=== PATIENT | female | born 1940 | race Caucasian/White ===

== ENCOUNTER 2019-09-26 06:39 | Day surgery (SDC) | payer MEDICARE, OTHER ==
[~2019-09-26] VITALS: Ht 160 cm; Wt 77.0 kg
[~2019-09-26 06:39] MED LIST: ATOR20 PO; Aspir 8181 MG PO; FISH OIL 1,2001 EACH PO; FOLIXAPURE5000 UNIT PO; GABA300 PO; Humalog100 UNIT/1; INS70/30I; INSDET100; INSULANI SC; LISI20 PO; LOVA20 PO; PIOG30 PO; Plavix75 MG PO; Prinivil10 MG PO
--- NOTE | 2019-09-26 09:05 | NUR ---
Pt received from Qian Pat RN, Pt is alert, cooperative and denies pain. Pt is in recliner chair with tele monitor on. SR with PVC's. Right radial within normal limits. Pt has dopple Popiteal on right with DP doppler on Left. IV NS 700 RODNEY #20 left forearm infusing at 100/hr. Awaiting orders. Pt with call light on chest.
--- NOTE | 2019-09-26 09:21 | NUR ---
Dr. Estrada here to talk with pt.
--- NOTE | 2019-09-26 10:49 | NUR ---
Pt finished breakfast, reclining in chair, warm blanket given. IV H.L. Pt with 2 cc air removed from tr-band. Pt denies pain. I will review discharge with patient and spouse upon her discharge.
--- NOTE | 2019-09-26 11:03 | NUR ---
Pt with 2 cc air removed at 1058, 2 more cc air removed at 1103. No bleeding or hematoma noted. VSS
--- NOTE | 2019-09-26 11:05 | NUR ---
All air removed from tr-band. Pt is now dressing with tr-band on. Pt went to [facility].
--- NOTE | 2019-09-26 11:25 | NUR ---
Pt returned from [facility]. She is dressed, I have instructed Leah not to use her right hand. Dr. Ambrocio here talking to patient regarding plan to ask Dr. Osuna to fix her claudation next week. Instructed patient that she would be contacted by Cardiology office. Right wrist tr-band removed dabbed clean and dabbed dry. Cloth dot applied site with no bleeding or hematoma noted, wrist board applied so patient could not use her fingers. IV left forearm removed catheter intact.
--- NOTE | 2019-09-26 12:00 | NUR ---
Pt wheeled to private auto via wheel chair. I spoke to and explain discharge instructions as well as Dr. Ambrocio's plan for treatment in phases due to kidney function. Pt and spouse verbalized understanding of instructions and also that he will be speaking with Dr. Osuna for futher tx. Pt stable upon discharge site with no bleeding or hematoma reviewed site with and patient.
== END 2019-09-26 12:54 | disposition home or self-care (01) ==
LOC: MHTC 06:39
DX: I70.211 Atherosclerosis of native arteries of extremities with intermittent claudication, right leg (principal); E11.51 Type 2 diabetes mellitus with diabetic peripheral angiopathy without gangrene; I48.91 Unspecified atrial fibrillation; I12.9 Hypertensive chronic kidney disease with stage 1 through stage 4 chronic kidney disease, or unspecified chronic kidney disease; E11.22 Type 2 diabetes mellitus with diabetic chronic kidney disease; N18.9 Chronic kidney disease, unspecified; E78.5 Hyperlipidemia, unspecified; Z79.4 Long term (current) use of insulin; Z79.82 Long term (current) use of aspirin; Z79.899 Other long term (current) drug therapy; Z79.02 Long term (current) use of antithrombotics/antiplatelets
CPT/HCPCS: 76937; 82947; 99152; 99153; C1769; C1887; C1894; J1644; J2250; J3010; J7030; Q9967

== ENCOUNTER 2019-10-07 05:59 | Inpatient (IN) | payer MEDICARE, OTHER ==
[~2019-10-07] VITALS: Ht 160 cm; Wt 82.8 kg
[2019-10-07 07:34] LABS: BASOPHILS ABSOLUTE AUTO 0.07 K/mm3 (0.00-0.23); BASOPHILS PERCENT AUTO 1 % (0-2); EOSINOPHILS ABSOLUTE AUTO 0.48 K/mm3 (0.00-0.68); EOSINOPHILS PERCENT AUTO 3 % (0-6); Hematocrit 36.5 % (33.0-51.0); Hemoglobin 11.7 g/dL (11.5-16.0); IMMATURE GRAN ABSOLUTE AUTO 0.05 K/mm3 (0.00-0.10); IMMATURE GRAN PERCENT AUTO 0 % (0-1); LYMPHOCYTES ABSOLUTE AUTO 3.48 K/mm3 (0.84-5.20); LYMPHOCYTES PERCENT AUTO 24 % (21-46); MONOCYTES ABSOLUTE AUTO 1.07 K/mm3 (0.16-1.47); MONOCYTES PERCENT AUTO 7 % (4-13); Mean Corpuscular HGB Conc 32.1 g/dL (31.5-36.5); Mean Corpuscular Volume 94 fL (80-100); NEUTROPHILS ABSOLUTE AUTO 9.67 K/mm3 (1.96-9.15); NEUTROPHILS PERCENT AUTO 65 % (41-73); Platelet Count 285 K/mm3 (150-400); RDW Coefficient Variation 13.2 % (11.7-14.2); RDW Standard Deviation 45.2 fL (35.1-46.3); White Blood Cell Count 14.82 K/mm3 (4.00-11.30)
[2019-10-07 07:58] LABS: International Normalized Ratio 0.96; Prothrombin Time Results 10.3 Sec (9.7-11.5)
[2019-10-07 08:02] LABS: Bun/Creatinine Ratio 20.7 (12.0-20.0); Calcium, Blood 8.3 mg/dL (8.5-10.1); Creatinine, Blood 1.5 mg/dL (0.40-1.00); Potassium, Blood 4.3 mmol/L (3.5-5.5)
--- NOTE | 2019-10-07 14:10 | NUR ---
ASSUMED CARE: PT ARRIVED FROM INJURY/SAFETY HAZARD ASSESSMENT NO HEPARIN OR CATHFLOW RUNNING UPON ARIVAL. NO ACUTE BLEEDING NOTED AT SHEATH SITES ON THE R OR L GROIN SITES. PT EDUCATED ON KEEPING HER LEGS STREIGHT. PULSES ARE CHECKED AND VERAFIED WITH HEART CENTER STAFF PULSES ARE FELT IN BOTH FEET JUST VERY WEAK ON THE R PEDAL PULSE. WILL CONTINUE TO MONITOR AND ASSESS FURTHER.
--- NOTE | 2019-10-07 14:39 | NUR ---
CATHFLOW STARTED: STARTED THE CATHFLOW AT THIS TIME IN THE L WHITE SHEATH. PEDEL PULSES CONTINUE TO BE PALPABLE JUST WEAKER ON THE R SIDE.
--- NOTE | 2019-10-07 15:08 | NUR ---
HEPARIN STARTED: STARTED HEPARIN IN THE SIDE PORT OF THE L SHEATH PER ORDERS.
--- NOTE | 2019-10-07 16:57 | NUR ---
SOW: SOW PLACED IN PT TO PREVENT EXCESSIVE ROLLING AND FLEXSION OF THE FEMORAL SHEATHS. ELI ERNANDEZ PLACED AND UA SENT TO THE LAB. WILL CONTINUE TO MONITOR.
--- NOTE | 2019-10-07 17:02 | NUR ---
FENTANYL: PT IS NOTED TO BE ON HER BACK WITH HER R KNEE SLIGHTLY BENT. UPON ENTERING THE ROOM PT STATES SHE IS IN A LOT OF PAIN IN THAT R LEG.N REEDUCATED PT ON THE IMPORTANCE OF KEEPING HER LEGS STREIGHT TO REDUCE RISK OF BLEEDING. NO BLEEDING NOTED UPON ASSESSMENT. CALLED DR ROSALES AND RECEIVED ORDER FOR PAIN MEDS [id number].
[2019-10-07 17:22] LABS: Source, Urine Catheter
[2019-10-07 17:45] LABS: Bilirubin, Urine Neg (Neg); Blood, Urine Neg (Neg); Glucose Qualitative, Urine Neg (Neg); Ketones, Urine Neg (Neg); Leukocyte Esterase, Urine 1+ (Neg); Nitrite, Urine Pos (Neg); Protein, Urine 1+ (Neg); Urobilinogen, Urine NORM (Normal)
[2019-10-07 17:55] LABS: Appearance, Urine Hazy (Clear); Color, Urine Yellow (P-Yellow)
[2019-10-07 17:58] LABS: Bacteria Mod /hpf; Red Blood Cells, Urine 0-2 /hpf (0-2); Squamous Epithelial Cells Rare /hpf (Few)
--- NOTE | 2019-10-07 20:00 | NUR ---
ASSUMED CARE OF PT AT 1915. REPORT RECEIVED AT BEDSIDE. PT PRESENTS IN BED. HAS DEMONSTRATED FORGETFULNESS. NEEDS TO BE REORIENTED TO WHY SHE IS IN THE HOSPITAL, AND THAT SHE HAS AN ARTERIAL SHEATH AND VENOUS SHEATH IN PLACE. TPA INFUSING PER ORDERS WELL HEPARIN. LEFT GROIN SITE CHECK WITHOUT OOZING OR HEMATOMA. RIGHT GROIN WITH VENOUS SHEATH. NO HEMATOMA OR OOZING. DOPPLER PULSES BI LATERAL NOTED DISTALLY. WILL REVIEW CHART AND PLAN OF CARE FOR THIS PT.
--- NOTE | 2019-10-07 23:00 | NUR ---
PT'S GROIN SITES REMAIN WITHOUT HEMATOMA OR OOZING. PT AWAKENS AND AGAIN FORGETES WEHRE SHE IS. ASKS IF IT IS TIME TO GET UP. REORIENTED PT TO WHERE SHE IS AT THE TIME AND THE RESTRICTIONS SECONDARY TO FEMORAL SHEATHS. PT HAS NO COMPLAINTS OF PAIN AT THIS TIME. PT CONTINUES ON TPA PER ORDERS. HAVE BEEN ABLE TO OBTAIN PERIPHERAL PULSES BY DOPPLER. RIGHT LOWER EXTREMITY SLIGHTLY COOLER TO THE TOUCH VERSUS LEFT.
--- NOTE | 2019-10-08 03:27 | NUR ---
PT CURRENTLY SLEEPING IN BED WITHOUT COMPLAINTS. REMAINS SUPINE PER GROIN ACCESS RESTRICTIONS. NO HEMATOMA OR OOZING.
[2019-10-08 04:27] LABS: BASOPHILS ABSOLUTE AUTO 0.06 K/mm3 (0.00-0.23); BASOPHILS PERCENT AUTO 0 % (0-2); EOSINOPHILS ABSOLUTE AUTO 0.02 K/mm3 (0.00-0.68); EOSINOPHILS PERCENT AUTO 0 % (0-6); Hematocrit 34.1 % (33.0-51.0); IMMATURE GRAN ABSOLUTE AUTO 0.08 K/mm3 (0.00-0.10); IMMATURE GRAN PERCENT AUTO 0 % (0-1); LYMPHOCYTES ABSOLUTE AUTO 2.65 K/mm3 (0.84-5.20); LYMPHOCYTES PERCENT AUTO 14 % (21-46); MONOCYTES ABSOLUTE AUTO 1.32 K/mm3 (0.16-1.47); MONOCYTES PERCENT AUTO 7 % (4-13); Mean Corpuscular HGB 30.1 pg (26.0-34.0); Mean Corpuscular HGB Conc 32.3 g/dL (31.5-36.5); Mean Corpuscular Volume 93 fL (80-100); Mean Platelet Volume 10.9 fL (9.1-12.4); NEUTROPHILS ABSOLUTE AUTO 15.21 K/mm3 (1.96-9.15); NEUTROPHILS PERCENT AUTO 79 % (41-73); Platelet Count 195 K/mm3 (150-400); RDW Coefficient Variation 13.2 % (11.7-14.2); RDW Standard Deviation 45.3 fL (35.1-46.3); Red Blood Cell Count 3.65 M/mm3 (3.80-5.20); White Blood Cell Count 19.34 K/mm3 (4.00-11.30)
[2019-10-08 04:44] LABS: Bun/Creatinine Ratio 19.9 (12.0-20.0); Calcium, Blood 8.1 mg/dL (8.5-10.1); Creatinine, Blood 1.41 mg/dL (0.40-1.00); Potassium, Blood 4.1 mmol/L (3.5-5.5)
--- NOTE | 2019-10-08 07:01 | NUR ---
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 PT ACKNOWLEDGES PROCEDURE. REPORT GIVEN TO [facility]SI[facility] NURSES. PT WITHOUT HEMATOMA IN LEFT OR RIGHT GROIN.
--- NOTE | 2019-10-08 07:05 | NUR ---
PT TO HEART CENTER: HEART CENTER STAFF HERE AND TAKING PT TO THE BEEF LUGGER AT THIS TIME. PT ALERT AND TALKING TO STAFF UPON LEAVING.
--- NOTE | 2019-10-08 08:48 | NUR ---
RETURN FROM IT SENIOR ANALYST: PT ROLLS IN THE DOOR ON THE BED LYING FLAT. SHE DENIES PAIN AT THIS TIME. MINIMAL BLEEDING IS NOTED ON THE R FOOT AT THE ATTEMPTED SITE FROM YESTERDAY, A SECONDARY DRESSING IS COVERING SITE. L ARTERIAL SHEATH HAS BEEN REMOVED. SITE APPEARS TO BE SOFT AND NON TENDER. NO BLEEDING NOTED AT THIS TIME. PULSES HEARD BY DOPPLER IN THE R FOOT. R FOOT APPEARS TO BE PINK AND WARM TO THE TOUCH. PT STATES SHE IS TIRED. BLOOD SUGAR SPOT CHECKED. EDUCATED ON THE NEED TO REMAIN FLAT FOR AT LEASE 4 MORE HOURS. R VENOUS SHEATH REMAINS IN PLACE. CALL LIGHT IN PLACE. WILL CONTINUE TO MONITOR AND ASSESS FURTHER.
--- NOTE | 2019-10-08 15:45 | NUR ---
HEMATOMA: QUALITY SUPERVISOR IN ROOM AFTER PT CALLED D/T PAIN IN HER L LEG. CHARGE CALLED THIS RN TO THE ROOM AND PT HAS A LARGE HEMATOMA NOTED BELOW THE SITE OF THE GROIN ACCESS. QUALITY SUPERVISOR ELI BEGAN TO HOLD PRESSURE AND MASSAGE THE HEMATOMA. THIS RN REMAINS IN THE ROOM TO ASSESS BP AND OTHER IV ACCESS. R AC IS REMOVED AFTER ATTEMPTING TO FLUSH, RECEIVED BLOOD RETURN AND THEN UPON FLUSHING SUDDENTLY OCCLUDED APPEARS TO BE POSSITIONAL. DRESSING ON R TOP OF FOOT IS STILL SATURATED THIS RN BEGINS TO REMOVE THE DRESSING AND A DROP OF BLOOD RUNS DOWN THE FOOT. CLEANED AREA AND APPLIED A THOMAS DRESSING. QUALITY SUPERVISOR CLEANS THE L FEMORAL SITE WITH CHLORHEXADINE AND THEN PLACES A HTOMAS DRESSING OVER THE INSERSION SITE AND OUTLINES THE AREA OF THE HEMATOMA. VITAL SIGNS REMAIN STABLE DURING THIS TIME, BUT SEVERAL INACURATE READINGS D/T PT MOVING HER ARM OR LIFTING IT UP IN THE AIR WHILE ATTMPTING TO TAKE BP.
--- NOTE | 2019-10-08 16:30 | NUR ---
DR CONNIE CHAPARRO: WHILE THIS RN IS REMOVING THE R VENIOUS SHEATH DR CONNIE CHAPARRO TO THE ROOM AND BEGINS TO DISCUSS ANTICOAGULATION MEDICATIONS THE PT NEEDS TO BE ON. PT AGREES TO TRY ELIQUIS. DR ROSALES ORDERS TO STOP THE HEPARIN WHILE HE IS IN THE ROOM, A NOW DOSE OF ELIQUIS AND STATES HE WILL BE PLACING DISCHARGE ORDERS.
--- NOTE | 2019-10-08 17:50 | NUR ---
BLEEDING STABLE, REDUCED HEMATOMA: PT RECEIVED A TOTAL OF 4 EPPISODES OF PRESSURE AND MASSAGE OF THE HEMATOMA. THE LAST EPPISODE WAS AT APPROX 1715 THIS RN HELD PRESSURE ABOVE THE INSERSION SITE FOR APPROX 20 MIN AND MASSAGED THE HEMATOMA TO DISPERSE. PT EDUCATED THAT SHE WILL END UP WITH A VERY LARGE BRUISE D/T THE HEMATOMA. CONTINUED TO REASSESS SITE Q5 MINITES UNTIL 1800. SITE REMAINS SOFT AND TENDER TO THE TOUCH. WHILE HOLDING PRESSURE THE LAST TIME PT STATED SHE DOES NOT FEEL COMFORTABLE GOING HOME, THIS RN CALLED DR JACKSON TO APPROVE. AGREES THAT IS FINE AND DISCHARGE ORDERS REMAIN LONG PT REMAINS STABLE. PT IS TO RECEIVE HER MORNING DOSE OF ELIQUIS 2.5 MG PRIOR TO DISCHARGE AND EDUCATED TO FILL PERSCRIPTION SOON SHE LEAVES THE HOSPITAL. PT NEEDS TO BE EDUCATED ON THE IMPORTANCE OF THE MEDICATION D/T PT STILL QUESTIONING IF SHE SHOULD TAKE IT. PT APPEARS TO BE VERY HESITANT.
--- NOTE | 2019-10-08 19:05 | NUR ---
DISCHARGE: RECEIVED DISCHARGE ORDERS NO ELIQUIS NOTED ON THE HOME MED LIST. CALLED DR ROSALES TO DISCUSS. DR ROSALES STATES HE IS BRINGING A WRITTEN PRESCRIPTION D/T HAVING A DISCUSSION WITH PHARMACY AND NOT BEING ABLE TO ADD ELIQUIS TO THE "ORDER SET". STATES HE WANTS A FOLLOW UP APPOINTMENT WITH HER ON SUNDAY CALLED THE [facility] TO RECEIVE A TIME THEY ASK IF DR ROSALES STATED A SPECIFIC TIME. [facility] STATES THEY WILL CALL THE PT ON SUNDAY TO COORDINATE AND SCHEDULE A SPECIFIC TIME ON SUNDAY.
--- NOTE | 2019-10-08 20:28 | NUR ---
ASSUMED CARE OF PT AT 1915. REPORT RECEIVED AT BEDSIDE. PT PRESENTS IN BED. ALERT AND ORIENTED. DOES HAVE SOME FORGETFULNESS NOTED. IMPROVEMENT NOTED IN WARMTH OF RIGHT LOWER EXTREMITY TO PRIOR ASSESSMENT DONE BY THIS RN PREVIOUS NIGHT. ABLE TO PALPATE PEDAL PULSES BI LAT. LEFT GROIN SITE SOFT. NO HEMATOMA OR OOZING TO NOTE. LEFT AC IV DOES TEND TO OF SLOW OOZE OF BLOOD AROUND INSERTION SITE. WILL REVIEW CHART AND PLAN OF CARE FOR THIS PT.
--- NOTE | 2019-10-08 23:29 | NUR ---
PT'S GROIN SITES REMAIN WITHOUT HEMATOMA OR OOZING. PT INSTRUCTED TO CALL IF SHE FEELS ANY CHANGES AT GROIN SITES, OR IF SHE HAS CONCERNS. WILL TRY TO PROVIDE PT WITH REST THIS NIGHT. WILL DO PERIODIC GROIN SITE CHECKS SECONDARY TO EARLIER HEMATOMA. WILL CONTINUE TO MONITOR PT.
--- NOTE | 2019-10-09 08:06 | NUR ---
ASSUMED CARE REPORT RECEIVED FROM ASIYA TREVINO. PT RESTING IN BED, REQUESTING TO GET UP TO THE BR TO HAVE A BM. ASSISTED PT TO THE EOB AND SHE C/O SOME DIZZINESS. HAD PT SIT AT EDGE OF BED FOR ABOUT 5 MINUTES. TOOK HER BP AND SBP 106, HR 106. PT'S IV WAS LEAKING BLOOD AT THAT TIME SO REMOVED IV WHILE GIVING PT TIME TO ADJUST. ASSISTED PT TO BSC PROVIDING MODERATE ASSISTANCE. PT SAT ON COMMODE FOR ABOUT 10 MINUTES. WHILE SITTING ON THE COMMODE PT STARTED TO GET CONFUSED AND LESS RESPONSIVE. PT DID NOT APPEAR TO BE BEARING DOWN AND HR STAYED IN THE 90-100S. CALLED FOR ASSISTANCE AND PT REQUIRED THE LIFT TO GET BACK TO BED SHE WOULD NOT FOLLOW ANY COMMANDS. BG 246. SBP IN THE 80S ONCE BACK IN BED, BUT CAME BACK UP TO THE 90S. PT'S COLOR TURNED BACK TO PINK ONCE SHE RESTED AND SHE STARTED TO BE MORE RESPONSIVE, ABLE TO SAY SHE IS IN THE HOSPITAL BUT STILL CONFUSED TO DATE. AFTER ABOUT 15 MINUTES BACK IN BED PT STATES SHE IS FEELING A LOT BETTER, STILL SLIGHTLY CONFUSED. DR. IRVNIG INFORMED OF EVENTS. PT'S GROIN SITE REMAINS SOFT WITHOUT SIGNS OF INCREASING HEMATOMA. CONTINUING TO MONITOR.
[2019-10-09 09:01] LABS: BASOPHILS ABSOLUTE AUTO 0.05 K/mm3 (0.00-0.23); BASOPHILS PERCENT AUTO 0 % (0-2); EOSINOPHILS PERCENT AUTO 1 % (0-6); Hematocrit 25.3 % (33.0-51.0); IMMATURE GRAN ABSOLUTE AUTO 0.12 K/mm3 (0.00-0.10); IMMATURE GRAN PERCENT AUTO 1 % (0-1); LYMPHOCYTES PERCENT AUTO 13 % (21-46); MONOCYTES ABSOLUTE AUTO 1.38 K/mm3 (0.16-1.47); MONOCYTES PERCENT AUTO 6 % (4-13); Mean Corpuscular HGB 30.3 pg (26.0-34.0); Mean Corpuscular HGB Conc 31.6 g/dL (31.5-36.5); Mean Platelet Volume 10.7 fL (9.1-12.4); NEUTROPHILS ABSOLUTE AUTO 17.33 K/mm3 (1.96-9.15); NEUTROPHILS PERCENT AUTO 80 % (41-73); Platelet Count 164 K/mm3 (150-400); RDW Coefficient Variation 13.4 % (11.7-14.2); Red Blood Cell Count 2.64 M/mm3 (3.80-5.20); White Blood Cell Count 21.68 K/mm3 (4.00-11.30)
[2019-10-09 09:06] LABS: Mean Corpuscular Volume 96 fL (80-100)
[2019-10-09 09:21] LABS: Bun/Creatinine Ratio 12.8 (12.0-20.0); Calcium, Blood 7.9 mg/dL (8.5-10.1); Creatinine, Blood 3.51 mg/dL (0.40-1.00); Potassium, Blood 4.6 mmol/L (3.5-5.5)
--- NOTE | 2019-10-09 11:28 | NUR ---
REASSESSMENT PT HAS BEEN RESTING IN BED SINCE EPISODE THIS MORNING. SHE REMAINS ORIENTED TO PERSON AND PLACE, WAS ABLE TO EAT BREAKFAST AND HAS BEEN DRINKING FLUIDS. SPOKE WITH DR. IRVING ABOUT HIGH BLOOD SUGARS AND PT IS NOT ON HER NORMAL LANTUS DOSE. RECEIVED ORDERS TO INCREASE. IV FLUIDS STARTED PER ORDERS AND PLAN OF CARE DISCUSSED WITH PT. LUNGS REMAIN CLEAR, RA, SR, BP STABLE IN THE LOW 100S SINCE THIS MORNING. LOW URINE OUTPUT THIS MORNING WITH LESS THAN 50ML, CLOUDY. PT COMPLAINED OF SOME PAIN TO RLE, PULSES STILL PRESENT WITH DOPPLER AND LEG IS PINK AND WARM. HEMATOMA SITE ON L GROIN REMAINS SOFT. SPOKE WITH PT'S AND PROVIDED UPDATE.
[2019-10-09 16:10] LABS: Hematocrit 22.9 % (33.0-51.0); Hemoglobin 7.6 g/dL (11.5-16.0)
[2019-10-09 16:39] LABS: Calcium, Blood 7.7 mg/dL (8.5-10.1); Creatinine, Blood 3.85 mg/dL (0.40-1.00); Potassium, Blood 4.8 mmol/L (3.5-5.5)
--- NOTE | 2019-10-09 18:11 | NUR ---
SHIFT SUMMARY PT HAD A NEAR SYNCOPAL EPISODE THIS MORNING WITH GETTING UP TO THE COMMODE AND THEN PT GOT ORTHOSTATIC AGAIN THIS AFTERNOON WITH PHYSICAL THERAPY. SHE DID OK SITTING ON THE EOB, BUT THEN GOT DIZZY AND DROPPED HER SBP TO THE 80S WHILE STANDING. PT TOOK ABOUT AN HOUR TO RECOVER HER BP AND THEN PT WAS SAYING SHE STILL DIDN'T FEEL GOOD. PT APPEARED MORE PALE THAN BASELINE AND SHE STATED SHE HAD A SHARP PAIN IN HER L CHEST. UNABLE TO DESCRIBE IT FURTHER OR RATE IT. PT STATES TO ASK HER WHEN ASKED FOR MORE SPECIFICS. SPOKE WITH DR. IRVING AND RECEIVED ORDER FOR EKG. PT APPEARS TO HAVE [address] DEPRESSION IN V2, V3, AND V4. RELAYED THIS TO DR. IRVING. WAITING FOR TROPONIN RESULTS. DR. IRVING ALSO INFORMED OF BMP RESULTS AND RECEIVED ORDER FOR FLUIDS AND NEPHROLOGY CONSULT. DR. KERN CAME TO THE BEDSIDE. [address] KERN UPDATED PT'S . PT'S LUNGS REMAIN CLEAR. SR. IN THE 80S. BP DOING BETTER WITH THE FLUIDS, SEE FLOWSHEET. PT ONLY HAD 55ML OF URINE FOR THE SHIFT, DRS AWARE. L GROIN REMAINS SOFT, NO SIGNS OF HEMATOMA. CONTINUING TO MONITOR.
[2019-10-09 19:07] LABS: Hematocrit 22.6 % (33.0-51.0); Hemoglobin 7.2 g/dL (11.5-16.0)
[2019-10-09 19:27] LABS: International Normalized Ratio 1.02; Prothrombin Time Results 10.9 Sec (9.7-11.5)
--- NOTE | 2019-10-09 19:40 | NUR ---
REPORTED TROPONIN TO DR. IRVING. RECEIVED ORDERS FOR HEPARIN PER PHARMACY, REPEAT STAT H/H, ECHO IN AM AND ABD CT. TOOK PT TO CT WITH AIDE AND PT TOELRATED WELL. PT'S IN THE ROOM VISITING WITH HER. REPORT GIVEN TO ASIYA RACHEL.
--- NOTE | 2019-10-09 19:45 | NUR ---
ASSESSMENT/ASSUMED CARE PT LYING SUPINE IN BED. A&O. AT BEDSIDE. PT DENIES PAIN OR DISCOMFORT AT THIS TIME. LUNGS CLEAR ON ROOMAIR. RESP EVEN AND NONLABORED. HEART RATE REGULAR. BP STABLE. LEFT GROIN SOFT TO PALPATION BUT TENDER FROM HEMATOMA YESTERDAY. RIGHT GROIN WITH BRUISING, SOFT TO PALPATION. DOPPLER PEDAL PULSES. BT+ ABD SOFT AND NONTENDER. DENIES N/V. NEW IV PLACED TO RIGHT FOREARM BY АННА RIVERA RN, 20G FOR BLOOD TRANSFUSION. IV 20G TO LEFT WRIST WITH BICARB GTT STARTED AT 100ML/HR, SITE CLEAR. SOW CATH PATENT WITH SCANT AMT URINE IN TUBE. 24 HR URINE IN PROGRESS.
--- NOTE | 2019-10-09 20:41 | NUR ---
TRANSFUSION FIRST UNIT PRBC STARTED. BICARB GTT DECREASED TO 10ML/HR WHILE BLOOD INFUSING
--- NOTE | 2019-10-09 21:15 | NUR ---
HOSPITALIST AT BEDSIDE HOSPITALIST HARIS ANAND AT BEDSIDE ASSESSING LEFT LEG FOR BLEEDING. PT TO HAVE US TO LEFT LEG TO CHECK FOR BLEEDING.
--- NOTE | 2019-10-09 21:50 | NUR ---
US OF LEFT LEG US COMPLETE PER US TECH NO ACTIVE BLEEDING SEEN. NOTIFIED HOSPITALIST HARIS ANAND.
--- NOTE | 2019-10-09 22:16 | NUR ---
URINE OUTPUT SPOKE WITH DR KERN REGARDING POOR URINE OUTPUT 20ML SINCE 190. INCREASED BICARB GTT TO 50 ML/HR NOW. WILL INCREASE BACK UP TO 100 ML/HR AFTER BLOOD TRANSFUSION.
--- NOTE | 2019-10-09 23:45 | NUR ---
DR ROSALES HERE TO CHECK UP ON PT. REVIEWED US WITH DR ROSALES. TALKED WITH HIM REGARDING POSSIBLE DIALYSIS CATH ON 10/10/19.
--- NOTE | 2019-10-10 00:13 | NUR ---
TRANSFUSION SECOND UNIT PRBC STARTED. TROPONIN DRAWN, BLOOD GLUCOSE 111, NO INSULIN GIVEN
--- NOTE | 2019-10-10 00:53 | NUR ---
DR LINDSAY NOTIFIED REGARDING TROPONIN OF 1.26, NO NEW ORDERS. PT DENIES PAIN
--- NOTE | 2019-10-10 04:14 | NUR ---
SPO2 DOWN TO 88% PT PLACED ON 2 LITERS O2 VIA NC.
[2019-10-10 04:19] LABS: BASOPHILS ABSOLUTE AUTO 0.07 K/mm3 (0.00-0.23); BASOPHILS PERCENT AUTO 0 % (0-2); EOSINOPHILS ABSOLUTE AUTO 0.39 K/mm3 (0.00-0.68); EOSINOPHILS PERCENT AUTO 2 % (0-6); Hematocrit 26.3 % (33.0-51.0); Hemoglobin 8.8 g/dL (11.5-16.0); IMMATURE GRAN ABSOLUTE AUTO 0.16 K/mm3 (0.00-0.10); IMMATURE GRAN PERCENT AUTO 1 % (0-1); LYMPHOCYTES ABSOLUTE AUTO 3.56 K/mm3 (0.84-5.20); LYMPHOCYTES PERCENT AUTO 15 % (21-46); MONOCYTES ABSOLUTE AUTO 1.78 K/mm3 (0.16-1.47); MONOCYTES PERCENT AUTO 8 % (4-13); Mean Corpuscular HGB 30.4 pg (26.0-34.0); Mean Corpuscular HGB Conc 33.5 g/dL (31.5-36.5); NEUTROPHILS ABSOLUTE AUTO 17.47 K/mm3 (1.96-9.15); NEUTROPHILS PERCENT AUTO 75 % (41-73); Platelet Count 141 K/mm3 (150-400); RDW Coefficient Variation 13.5 % (11.7-14.2); RDW Standard Deviation 44.7 fL (35.1-46.3); Red Blood Cell Count 2.89 M/mm3 (3.80-5.20); White Blood Cell Count 23.43 K/mm3 (4.00-11.30)
[2019-10-10 04:23] LABS: Mean Corpuscular Volume 91 fL (80-100)
[2019-10-10 04:37] LABS: Anion Gap 7 mmol/L (6-16); Blood Urea Nitrogen 51 mg/dL (8-24); Bun/Creatinine Ratio 11.8 (12.0-20.0); CO2, Blood 20 mmol/L (21-32); Calcium, Blood 7.4 mg/dL (8.5-10.1); Chloride, Blood 105 mmol/L (98-108); Creatinine, Blood 4.32 mg/dL (0.40-1.00); Glomerular Filtration Rate 10 (60-); Glucose, Blood 154 mg/dL (70-99); Magnesium, Blood 1.6 mg/dL (1.6-2.4); Phosphorus, Blood 3.7 mg/dL (2.5-4.9); Potassium, Blood 4.6 mmol/L (3.5-5.5); Sodium, Blood 132 mmol/L (136-145)
--- NOTE | 2019-10-10 05:11 | NUR ---
URINE OUTPUT NOTIFIED DR LINDSAY REGARDING POOR URINE OUTPUT. PT POSSIBLE DIALYSIS CATH TODAY WITH DIALYSIS
--- NOTE | 2019-10-10 05:48 | NUR ---
SHIFT SUMMARY PT RESTING QUIETLY. DENIES PAIN AT THIS TIME. PT GIVEN 2 UNITS PRBC DURING THE NIGHT, H&H UP TO 8.8/26.3. NO BLEEDING NOTED. US OF LEFT LEG DONE. DR ROSALES AND HOSPITALIST HARIS INTO SEE PT DURING THE NIGHT. NO ACUTE BLEEDING NOTED WITH US. 24 HR URINE IN PROGRESS. PT URINE OUTPUT POOR 75 ML FOR THE SHIFT. DR LINDSAY AND DR KERN NOTIFIED. POSSIBLE DIALYSIS CATH PLACEMENT TODAY BY DR ROSALES DUE TO CREATININE UP TO 4.32. HEPARIN GTT AT 14 UNITS/KG/HR NEXT PTT AT 1100. SODIUM BICARB GTT AT 100 ML/HR. TROPONIN UP TO 1.260, PT DENIES CHEST PAIN OR PRESSURE. REPORT TO ON COMING NURSE
--- NOTE | 2019-10-10 07:05 | NUR ---
ASSUMED CARE: RECEIVED REPORT FROM NOC RN. PT LYING IN BED LYING ON HER L SIDE WAKES EASILY TO VERBAL STEMULI. VERAFIED SODIUM BICARB RUNNING AT 100ML/HR. HEPARIN RUNNING AT 14 MCG/KG/HR WITH DOSING WT OF 62 KG. ASSESSED R AND L FEMORAL GROIN ACCESS SITES BRUISING IS NOTED AT BOTH SITES, BUT NO SWELLING OR BLEEDING NOTED. WILL CONTINUE TO MONITOR AND ASSESS FURTHER.
--- NOTE | 2019-10-10 07:25 | NUR ---
NEPHROLOGY: CALLED DR BOWLING TO NOTIFY HER OF HER PT BEING IN THE HOSPITAL AND DR KERN CURRENTLY FOLLOWING PT WHILE IN THE HOSPITAL AND PATIENT/FAMILY REQUESTING DR BOWLING TO CARE FOR HER RATHER THAN DR KERN. DR BOWLING IS OK WITH THAT AND ASKS THIS RN TO NOTIFY SHE WILL CALL HIM THIS AFTERNOON WITH UPDATE. DR KERN NOTIFIED OF THE CHANGE AND DR BOWLING AGREEING TO ASSUME CARE.
--- NOTE | 2019-10-10 08:59 | NUR ---
ELIVATED TROP: RECEIVED CRITICAL TROP LEVEL OF 7.[address] IRVING WITH ELIVATED TROP LEVELS. DR IRVING STATES SHE IS GOING TO ORDER A CARDIOLOGY CONSULT, REMINDED HER MUST BE A DR TO DR DIAS. WILL CONTINUE TO MONITOR. PT DENEIS PAIN.
--- NOTE | 2019-10-10 09:08 | NUR ---
ECHO PT RECEIVING ECHO AT THIS TIME.
--- NOTE | 2019-10-10 09:48 | NUR ---
DR IRVING: IN TO SEE THE PT AT THIS TIME ASSESSING PT. UPDATING PT ON PLAN OF CARE AND LETS PT KNOW SHE WILL CALL THE TODAY TO UPDATE.
[2019-10-10 10:34] LABS: Albumin, Blood 2.2 g/dL (3.4-5.0); Albumin/Globulin Ratio 0.6 (0.8-1.8); Bilirubin, Direct 0.1 mg/dL (0.0-0.3); Bilirubin, Indirect 0.5 mg/dL (0.1-0.7); Bilirubin, Total 0.6 mg/dL (0.1-1.0); Globulin, Blood 3.4 g/dL (2.2-4.0); Total Protein, Blood 5.6 g/dL (6.4-8.2)
--- NOTE | 2019-10-10 10:37 | NUR ---
DIALYSIS PORT/DR ROSALES: CALLED DR ROSALES TO UPDATE ON PT CURRENT CONDITION AND DISCUSS PLAN OF CARE. NO NOTES FROM DR ROSALES NOTED IN THE CHART PRIOR TO CALL SO WANTED TO VERAFY HE WOULD BE PLACING DIALYSIS PORT. DR ROSALES REPORTS DR KERN DENIED NEED FOR PORT AT THIS TIME. UPDATED DR ROSALES ON TOES ON R FOOT HAVING A FOUL ODOR THAT WAS NOT NOTED PREVIOUSLY. TRANSFERED CALL TO DR IRVING AT THIS TIME SO SHE CAN DISCUSS FURTHER WITH HIM.
[2019-10-10 11:20] LABS: Hematocrit 27.5 % (33.0-51.0); Hemoglobin 9.1 g/dL (11.5-16.0)
[2019-10-10 11:45] LABS: Albumin, Blood 2.1 g/dL (3.4-5.0); Anion Gap 11 mmol/L (6-16); Blood Urea Nitrogen 56 mg/dL (8-24); Bun/Creatinine Ratio 12.6 (12.0-20.0); CO2, Blood 18 mmol/L (21-32); Calcium, Blood 7.5 mg/dL (8.5-10.1); Chloride, Blood 102 mmol/L (98-108); Creatinine, Blood 4.45 mg/dL (0.40-1.00); Glomerular Filtration Rate 10 (60-); Glucose, Blood 261 mg/dL (70-99); Phosphorus, Blood 3.6 mg/dL (2.5-4.9); Potassium, Blood 5.2 mmol/L (3.5-5.5); Sodium, Blood 131 mmol/L (136-145)
--- NOTE | 2019-10-10 12:25 | NUR ---
HEPARIN: NO CHANGES TO HEPARIN DRIP AT THIS TIME.
--- NOTE | 2019-10-10 12:37 | NUR ---
URINE OUTPUT: RECEIVED CALL FROM DR BOWLING TOTAL URINE OUTPUT AT THIS TIME APPEAR TO BE 75ML DR FEELS WE CAN CONTINUE TO MONITOR AND ASSESS LABS AND URINE OUTPUT UNTIL TOMORROW BEFORE DECIDING IF PT NEEDS A TEMPORARY PORT FOR DIALYSIS.
--- NOTE | 2019-10-10 13:25 | NUR ---
DR FISCHER: CARDIOLOGY CONSULT IN AND DR PEREZ TO SEE PT. PT AND DR ANN TO MEDICALY MANAGE HEART CONDITION. WILL CONTINUE TO MONITOR.
--- NOTE | 2019-10-10 14:30 | NUR ---
ADL PCT WENT IN TO SEE IF PT WOULD LIKE A SHOWER, BUT PT WAS SLEEPING. MORNING WAS FILLED WITH ULTRASOUND, ECHO, AND NUMEROUS DOCTORS COMING IN TO SEE THE PT WAS UNABLE TO GET PT UP TO THE SHOWER THIS MORNING.
[2019-10-10 16:17] LABS: BASOPHILS ABSOLUTE AUTO 0.04 K/mm3 (0.00-0.23); BASOPHILS PERCENT AUTO 0 % (0-2); EOSINOPHILS ABSOLUTE AUTO 0.13 K/mm3 (0.00-0.68); EOSINOPHILS PERCENT AUTO 1 % (0-6); Hemoglobin 9.4 g/dL (11.5-16.0); IMMATURE GRAN ABSOLUTE AUTO 0.13 K/mm3 (0.00-0.10); IMMATURE GRAN PERCENT AUTO 1 % (0-1); LYMPHOCYTES ABSOLUTE AUTO 1.97 K/mm3 (0.84-5.20); LYMPHOCYTES PERCENT AUTO 9 % (21-46); MONOCYTES ABSOLUTE AUTO 1.38 K/mm3 (0.16-1.47); MONOCYTES PERCENT AUTO 6 % (4-13); Mean Corpuscular HGB 30.3 pg (26.0-34.0); Mean Corpuscular HGB Conc 33.6 g/dL (31.5-36.5); Mean Corpuscular Volume 90 fL (80-100); Mean Platelet Volume 11.1 fL (9.1-12.4); NEUTROPHILS ABSOLUTE AUTO 17.89 K/mm3 (1.96-9.15); NEUTROPHILS PERCENT AUTO 83 % (41-73); Platelet Count 153 K/mm3 (150-400); RDW Coefficient Variation 13.6 % (11.7-14.2); White Blood Cell Count 21.54 K/mm3 (4.00-11.30)
--- NOTE | 2019-10-10 17:16 | NUR ---
PCU STATUS: DR IRVING AGREED WITH PT BEING CHANGED TO PCU STATUS. DENITRATOR OPERATOR NOTIFIED.
--- NOTE | 2019-10-10 20:00 | NUR ---
ASSUMPTION OF CARE: PT A&O. SLIGHTLY IMPULSIVE BUT EASILY REDIRECTABLE. LUNG SOUNDS ARE CLEAR BUT PT ALSO SOUNDS WHEEZY AND IS TACHYPNEIC. SPO2 >90% ON RA. OCCASIONAL COMPLAINTS OF BEING SOB. IN NSR. TIBIAL PULSES FOUND WITH DOPPLER. BT X 4. SOW IN PLACE DRAINING SMALL AMTS OF YELLOW URINE. L&R GROIN ACCESS SITES ARE S/D/I. LARGE AMOUNTS OF BRUISING FROM ACCESS SITES. PT HAS A HX OF NEUROPATHY. R FOOT HAS NECROTIC SITES ON GREAT TOE AND SECOND DIGIT. C/O OF SOME PAIN IN THAT FOOT. L FOOT HAS A COUPLE BLACK SPOTS (SEE PICS IN CHART). 2 PIVS IN RFA AND L WRIST. HEPARIN INFUSING AT 15U AND BICARB AT 100MLS/HR. BED IN LOWEST POSITION, CALL LIGHT IN REACH
[2019-10-10 21:25] LABS: Eosinophils-Raw #,Urine 0
[2019-10-10 21:27] LABS: White Blood Cells Urine TNTC /hpf (0-5)
--- NOTE | 2019-10-11 02:39 | NUR ---
PT BECOMING INCREASINGLY SOB, C/O OF DIFFICULTY BREATHING, HAS HAD AN INCREASE IN 02 DEMAND. PT HAS ALSO DEVELOPED A FREQUENT COUGH. CALL PLACED TO DR LINDSAY. ORDERS RECEIVED TO PUT BICARB DRIP ON STANDBY UNTIL AM AND THEN REASSESS AT DURING DAYSHIFT.
[2019-10-11 03:35] LABS: BASOPHILS ABSOLUTE AUTO 0.04 K/mm3 (0.00-0.23); BASOPHILS PERCENT AUTO 0 % (0-2); EOSINOPHILS ABSOLUTE AUTO 0.09 K/mm3 (0.00-0.68); EOSINOPHILS PERCENT AUTO 0 % (0-6); Hematocrit 25.7 % (33.0-51.0); Hemoglobin 8.7 g/dL (11.5-16.0); IMMATURE GRAN ABSOLUTE AUTO 0.19 K/mm3 (0.00-0.10); IMMATURE GRAN PERCENT AUTO 1 % (0-1); LYMPHOCYTES ABSOLUTE AUTO 2.05 K/mm3 (0.84-5.20); LYMPHOCYTES PERCENT AUTO 8 % (21-46); MONOCYTES ABSOLUTE AUTO 1.74 K/mm3 (0.16-1.47); MONOCYTES PERCENT AUTO 7 % (4-13); Mean Corpuscular HGB 30.5 pg (26.0-34.0); Mean Corpuscular HGB Conc 33.9 g/dL (31.5-36.5); Mean Corpuscular Volume 90 fL (80-100); Mean Platelet Volume 10.9 fL (9.1-12.4); NEUTROPHILS ABSOLUTE AUTO 20.73 K/mm3 (1.96-9.15); NEUTROPHILS PERCENT AUTO 83 % (41-73); Platelet Count 173 K/mm3 (150-400); RDW Coefficient Variation 13.4 % (11.7-14.2); RDW Standard Deviation 44.4 fL (35.1-46.3); Red Blood Cell Count 2.85 M/mm3 (3.80-5.20); White Blood Cell Count 24.84 K/mm3 (4.00-11.30)
[2019-10-11 03:49] LABS: Albumin, Blood 2.1 g/dL (3.4-5.0); Anion Gap 9 mmol/L (6-16); Blood Urea Nitrogen 61 mg/dL (8-24); Bun/Creatinine Ratio 14.5 (12.0-20.0); CO2, Blood 21 mmol/L (21-32); Calcium, Blood 7.1 mg/dL (8.5-10.1); Chloride, Blood 100 mmol/L (98-108); Creatinine, Blood 4.21 mg/dL (0.40-1.00); Glomerular Filtration Rate 11 (60-); Glucose, Blood 224 mg/dL (70-99); Phosphorus, Blood 3.7 mg/dL (2.5-4.9); Potassium, Blood 5.1 mmol/L (3.5-5.5); Sodium, Blood 130 mmol/L (136-145)
--- NOTE | 2019-10-11 06:27 | NUR ---
SHIFT SUMMARY: NO ACUTE CHANGES SINCE LAST NOTE. PT STILL HAS AN OCC COUGH AND SOB/DYSPNEA HOWEVER PT HAS HAD A DECREASE IN THOSE SYMPTOMS SINCE BICARB DRIP WAS PLACED ON STANDBY. HER O2 DEMANDS HAVE ALSO STABILIZED AT 5L NC. SBP AND HR STABLE. PT HAD MORE URINE OUTPUT T/O THE NIGHT-800MLS OUT. PT HAS R AND L ACCESS SITES. LARGE AMT OF BRUISING ACROSS GROIN AND PELVIS. WOUNDS TO FEET REMAIN UNCHANGED SINCE LAST NOTE. 2PIV TO RFA AND L WRIST. HEPARIN UNFUSING AT 15U, BICARB DRIP ON STANDBY. PLAN FOR POSS DIALYSIS. WILL GIVE REPORT TO ONCOMING ASIYA
--- NOTE | 2019-10-11 07:15 | NUR ---
AM ASSESSMENT: Pt resting in bed. Appears tachypnic but states that she is feeling better and not as SOB. LS caurse throughout. BT positive. HR reg with murmur noted. Pt states that she has some pain in her toes that is tolerable, some numbness in her feet. NO change in appearance of wounds of feet from pictures taken. Very large amount of bruising noted in groin, up into abd fold and down into thighs. Groin sites tender to palpation. Kay cath draining clear yellow urine. Pt denies chest pain. No other changes. Will continue to monitor.
--- NOTE | 2019-10-11 18:05 | NUR ---
SHIFT SUMMARY: Pt has done well this shift. Large amount of clear yellow urine output in morrison cath. Pt has denied chest pain throughout the shift. VSS. BIox has remained >90% on 5L per nc. Heprin gtt has been running per orders. Pt was able to work with PT today and tolerated well. NO changes in wound sites. Pt was just transfered to room PCU15. Stable at time of transfer. Report was given and care transfered to Christa. ASIYA.
--- NOTE | 2019-10-11 18:43 | NUR ---
PT ARRIVAL ON UNIT. PT ARRIVED TO PCU APROX 1814. VS STABLE. 24HR URINE COLLECTION STARTED AT 1800. PT IS A&Ox4. HEPARIN GTT RUNNING PER ORDERS.
--- NOTE | 2019-10-11 19:56 | NUR ---
ASSUMED CARE OF PATIENT AT APPROXIMATELY 1905 FROM SHANNEN Jung RN. PATIENT ALERT AND ORIENTED TO SELF, AND LOCATION; FORGETFUL. PATIENT ONE ASSIST OUT OF BED PER REPORT. PATIENT REPORTS CHRONIC PAIN IN HER RIGHT FOOT THAT IS WORSE WHEN SHEETS ARE MOVED ACROSS HER TOES; FOOT CRADLE PLACED. PAIENT REPORTS NUMBNESS IN FEET. PATIENT DENIES TINGLING, DIZZINESS OR NAUSEA. PATIENT ASPIRATION RISK; PILLS IN APPLESAUSE. NSR ON TELE; OXYGEN SATURATION ABOVE 90% ON 4LPM VIA NC. HEPARIN GTT. 1XPIV S/L. MULTIPLE WOUNDS NOTED IN ASSESSMENT; BRUISING FROM UPPER THIGH INTO ABDOMEN. PATIENT CURRENTLY RESTING IN BED; CALL LIGHT IN REACH; BED ALARM ON; BED IN LOWEST POSISTION; WILL CONTINUE TO MONITOR AND ASSESS UNTIL END OF SHIFT.
[2019-10-12 03:54] LABS: BASOPHILS ABSOLUTE AUTO 0.04 K/mm3 (0.00-0.23); BASOPHILS PERCENT AUTO 0 % (0-2); EOSINOPHILS ABSOLUTE AUTO 0.22 K/mm3 (0.00-0.68); EOSINOPHILS PERCENT AUTO 1 % (0-6); Hematocrit 22.1 % (33.0-51.0); Hemoglobin 7.4 g/dL (11.5-16.0); IMMATURE GRAN ABSOLUTE AUTO 0.13 K/mm3 (0.00-0.10); IMMATURE GRAN PERCENT AUTO 1 % (0-1); LYMPHOCYTES ABSOLUTE AUTO 2.75 K/mm3 (0.84-5.20); LYMPHOCYTES PERCENT AUTO 14 % (21-46); MONOCYTES ABSOLUTE AUTO 1.93 K/mm3 (0.16-1.47); MONOCYTES PERCENT AUTO 10 % (4-13); Mean Corpuscular HGB 30.3 pg (26.0-34.0); Mean Corpuscular HGB Conc 33.5 g/dL (31.5-36.5); Mean Corpuscular Volume 91 fL (80-100); NEUTROPHILS ABSOLUTE AUTO 15.28 K/mm3 (1.96-9.15); NEUTROPHILS PERCENT AUTO 75 % (41-73); Platelet Count 182 K/mm3 (150-400); RDW Coefficient Variation 13.5 % (11.7-14.2); RDW Standard Deviation 44.1 fL (35.1-46.3); Red Blood Cell Count 2.44 M/mm3 (3.80-5.20); White Blood Cell Count 20.35 K/mm3 (4.00-11.30)
[2019-10-12 04:20] LABS: Albumin/Globulin Ratio 0.6 (0.8-1.8); Bilirubin, Total 0.8 mg/dL (0.1-1.0); Bun/Creatinine Ratio 17.1 (12.0-20.0); Calcium, Blood 7.8 mg/dL (8.5-10.1); Creatinine, Blood 3.16 mg/dL (0.40-1.00); Globulin, Blood 3.4 g/dL (2.2-4.0); Total Protein, Blood 5.4 g/dL (6.4-8.2)
--- NOTE | 2019-10-12 04:48 | NUR ---
CALLED DR. LINDSAY TO REPORT DROP IN HEMOGLOBIN TO 7.4; ORDERS TO DISCONTINUE HEPARIN GTT AND TRANSFUSE 1RBC TO KEEP HEMOGLOBIN ABOVE 8.
--- NOTE | 2019-10-12 06:41 | NUR ---
THIS RN STAYED IN ROOM DURING FIRST 15 MINUTES OF RBC INFUSION. NO S/S OF REACTION NOTED. VSS. PATIENT SLEPT ABOUT SEVEN HOURS LAST NIGHT; REPORTS SHE DID NOT GET MUCH SLEEP. PATIENT EXPRESSED FRUSTRATION WITH BROKEN SLEEP AND AT ONE POINT REMOVED HER OXYGEN AND REFUSED RT TO PUT IT BACK ON; DESAT TO 86% THEN PATIENT ALLOWED OXYGEN TO BE PUT BACK ON. NO OTHER ACUTE CHANGES TO REPORT. WILL CONTINUE TO MONITOR AND ASSESS UNTIL END OF SHIFT.
--- NOTE | 2019-10-12 12:42 | NUR ---
[facility] VISIT NOTE: Review of EMR and case conferenced with pt's RN prior to my visit. Pt sound asleep upon entering room. She woke to voice on second attempt. Pt groggy initially but then able to discuss her wishes and concerns. She wanted to get up to bathroom due to urge to void. Pt has morrison cath in place, draining well, clear yellow urine. At end of my visit, Dr Javed rounded and plans to d/c catheter. Pt would like to return home joseline. She reports she has spoken to her this am about her wishes also. She says they manage well in the home and she did not identify needs for increased care at home. She said her does all the insulation worker for the most part, laundry etc. When asked about life sustaining measures and resuscitative attempts if she were to have cardiac or respiratory failure pt is very clear that if she is gone, found without a heart beat or in respiratory failure she wants comfort measures and does not want CPR or ventilatory support. POLST completed with her. Her wishes were communicated to her RN, Dr Javed and Dr Villatoro. New code status orders obtained by VO and entered. POLST form on pt's doorway, awaiting signature from and Dr Villatoro aware. Pt states she hates to "just say goodbye to her and then go" but that they have talked about all of that he supports her desire to forego invasive or life sustaining treatments if needed at this time. Her renal function has improved and no dialysis is indicated at this time. Pt hopeful for return home tomorrow. Pt denies pain, anxiety or distress. Her chief complaint is sleeplessness at night and fatigue during the day. She has an untouched lunch tray in front of her. She declined offer to help get her set up to eat her lunch and wants to try to sleep/rest some more. Planned with pt to return tomorrow and check in with her. I will follow up on getting a signed POLST to medical records/EMR tomorrow also.
[2019-10-12 14:05] LABS: Stool Occult Blood Guaiac 1 Neg (Neg)
--- NOTE | 2019-10-12 18:50 | NUR ---
SHIFT SUMMARY NO ACUTE CHANGES NOTED. PT HAS BEEN UP TO THE BEDSIDE CHAIR X3, SOW CATHETER WAS REMOVED PER 'S VERBAL ORDERS. STOOL & URINE SAMPLES HAVE BEEN SENT. PT DENIES PAIN, PEDAL PULSE INTACT, DENIES N/T TO EXT, DRSG C/D/I. TOLERATING PO INTAKE, MULTIPLE FORMED STOOLS NOTED TODAY. PALLIATIVE CARE CONSULTED W/PT, SHE IS NOW A DNR PER HER WISHES. RESING IN BED AT THIS TIME, CALL LIGHT IN REACH, WILL REPORT TO NOC RN.
--- NOTE | 2019-10-12 22:55 | NUR ---
ASSUMED CARE OF PATIENT AT APPROXIMATELY 1910 FROM ISABEL Mercer RN. PATIENT ALERT AND ORIENTED TO SELF, AND LOCATION; FORGETFUL. PATIENT ONE-TWO ASSIST W/ FWW OUT OF BED. AT SHIFT CHANGE PATIENT CALLS AND REPORTS "I WOKE UP AND WAS WET". PATIENTS URINARY CATH D/C'D SHORTLY BEFORE SHIFT CHANGE AND PATIENT WAS INCONTINENT OF STOOL; BM ON BEDSIDE COMMODE THEN GIVEN SHOWER. PATIENT REPORTS SHE FEELS ALOT BETTER. PATIENT REPORTS CHRONIC PAIN IN HER RIGHT FOOT THAT IS WORSE WHEN SHEETS ARE MOVED ACROSS HER TOES; TOLERABLE AT THIS TIME. PAIENT REPORTS NUMBNESS IN FEET. PATIENT DENIES TINGLING, DIZZINESS OR NAUSEA. PATIENT ASPIRATION RISK; PILLS IN APPLESAUSE. NSR ON TELE; OXYGEN SATURATION ABOVE 90% ON 4LPM VIA NC. 2X PIV S/L. MULTIPLE WOUNDS NOTED IN ASSESSMENT; BRUISING FROM UPPER THIGH INTO ABDOMEN. PATIENT CURRENTLY RESTING IN BED; CALL LIGHT IN REACH; BED ALARM ON; BED IN LOWEST POSISTION; WILL CONTINUE TO MONITOR AND ASSESS UNTIL END OF SHIFT.
[2019-10-13 03:51] LABS: BASOPHILS ABSOLUTE AUTO 0.04 K/mm3 (0.00-0.23); BASOPHILS PERCENT AUTO 0 % (0-2); EOSINOPHILS PERCENT AUTO 1 % (0-6); Hematocrit 24.9 % (33.0-51.0); Hemoglobin 8.1 g/dL (11.5-16.0); IMMATURE GRAN ABSOLUTE AUTO 0.18 K/mm3 (0.00-0.10); IMMATURE GRAN PERCENT AUTO 1 % (0-1); LYMPHOCYTES ABSOLUTE AUTO 2.18 K/mm3 (0.84-5.20); LYMPHOCYTES PERCENT AUTO 8 % (21-46); MONOCYTES ABSOLUTE AUTO 2.18 K/mm3 (0.16-1.47); MONOCYTES PERCENT AUTO 8 % (4-13); Mean Corpuscular HGB 29.6 pg (26.0-34.0); Mean Corpuscular HGB Conc 32.5 g/dL (31.5-36.5); Mean Corpuscular Volume 91 fL (80-100); Mean Platelet Volume 10.9 fL (9.1-12.4); NEUTROPHILS ABSOLUTE AUTO 21.85 K/mm3 (1.96-9.15); NEUTROPHILS PERCENT AUTO 82 % (41-73); NRBC ABSOLUTE 0.02 K/mm3 (0.00-0.02); NRBC Auto 0.1 /100 WBC (0.0-0.2); Platelet Count 215 K/mm3 (150-400); RDW Coefficient Variation 14.6 % (11.7-14.2); RDW Standard Deviation 46.5 fL (35.1-46.3); Red Blood Cell Count 2.74 M/mm3 (3.80-5.20); White Blood Cell Count 26.63 K/mm3 (4.00-11.30)
[2019-10-13 04:10] LABS: Albumin, Blood 1.9 g/dL (3.4-5.0); Albumin/Globulin Ratio 0.5 (0.8-1.8); Bilirubin, Total 0.9 mg/dL (0.1-1.0); Bun/Creatinine Ratio 22.6 (12.0-20.0); Calcium, Blood 7.7 mg/dL (8.5-10.1); Creatinine, Blood 2.35 mg/dL (0.40-1.00); Globulin, Blood 3.6 g/dL (2.2-4.0); Potassium, Blood 5.3 mmol/L (3.5-5.5); Total Protein, Blood 5.5 g/dL (6.4-8.2)
--- NOTE | 2019-10-13 06:25 | NUR ---
PATIENT SLEPT ABOUT EIGHT HOURS LAST NIGHT. NO ACUTE CHANGES TO REPORT. VSS. WILL CONTINUE TO MONITOR AND ASSESS UNTIL END OF SHIFT.
[2019-10-13 08:07] LABS: ANTIGLOMERULAR BM AB 4 units (0-20)
--- NOTE | 2019-10-13 12:26 | NUR ---
Brief visit with pt, who is trying to sleep again. Lunch tray on table. Pt reports much better sleep during the night and feeling better this am but states she is very tired again now. POLST is signed by the . Copied and sent to medical records. Copy of POLST placed on chart with original and instructions to SN on sending original with Pt on d/c. Case conferenced w/RN, and CM on current status and dc planning for home with HH vs SNF. Pt is on aspiration precautions with PO intake. Recommendation is for SNF. Pt reports wanting to go home. While I was visiting, pt was coughing with minimal conversation. Her HOB is up and she declined having it placed slightly higher. Pt again verbalizes her desire to sleep.
--- NOTE | 2019-10-13 18:01 | NUR ---
SHIFT SUMMARY PT ALERT AND ORIENTED. VS STABLE. O2 SATS REMAIN ABOVE 90% ON 4L NC. PT DENIES ANY PAIN. PT REPOSITIONED Q2H. PT CONTINENT OF BLADDER AND BOWEL THIS SHIFT. PT HAD MULTIPLE LOOSE STOOL AND SAMPLE SENT TO LAB. PT ABLE TO STAND UP AND TRANSFER TO BSC. ORDERS CHANGED TO MEDICAL STATUS. AWAITING TO GIVE REPORT TO MEDICAL FLOOR RN.
[2019-10-14 05:22] LABS: BASOPHILS ABSOLUTE AUTO 0.06 K/mm3 (0.00-0.23); BASOPHILS PERCENT AUTO 0 % (0-2); EOSINOPHILS ABSOLUTE AUTO 0.56 K/mm3 (0.00-0.68); EOSINOPHILS PERCENT AUTO 2 % (0-6); Hematocrit 26.5 % (33.0-51.0); Hemoglobin 8.4 g/dL (11.5-16.0); IMMATURE GRAN ABSOLUTE AUTO 0.24 K/mm3 (0.00-0.10); IMMATURE GRAN PERCENT AUTO 1 % (0-1); LYMPHOCYTES ABSOLUTE AUTO 2.14 K/mm3 (0.84-5.20); LYMPHOCYTES PERCENT AUTO 7 % (21-46); MONOCYTES ABSOLUTE AUTO 2.17 K/mm3 (0.16-1.47); MONOCYTES PERCENT AUTO 7 % (4-13); Mean Corpuscular HGB 29.6 pg (26.0-34.0); Mean Corpuscular HGB Conc 31.7 g/dL (31.5-36.5); Mean Corpuscular Volume 93 fL (80-100); Mean Platelet Volume 10.6 fL (9.1-12.4); NEUTROPHILS ABSOLUTE AUTO 24.87 K/mm3 (1.96-9.15); NEUTROPHILS PERCENT AUTO 83 % (41-73); NRBC ABSOLUTE 0.02 K/mm3 (0.00-0.02); NRBC Auto 0.1 /100 WBC (0.0-0.2); Platelet Count 284 K/mm3 (150-400); RDW Coefficient Variation 14.6 % (11.7-14.2); RDW Standard Deviation 49.1 fL (35.1-46.3); Red Blood Cell Count 2.84 M/mm3 (3.80-5.20); White Blood Cell Count 30.04 K/mm3 (4.00-11.30)
[2019-10-14 05:46] LABS: Bun/Creatinine Ratio 23.7 (12.0-20.0); Calcium, Blood 8.1 mg/dL (8.5-10.1); Creatinine, Blood 1.9 mg/dL (0.40-1.00); Potassium, Blood 5.2 mmol/L (3.5-5.5)
--- NOTE | 2019-10-14 06:19 | NUR ---
SHIFT SUMMARY AOX4. VSS. DENIES CP, N/V OR DYSPNEA. REPORTS PAIN IN RLE BUT DENIES NEED FOR MEDICATION. DECREASED O2 TO 4L FROM 5L & SPO2 @92% THIS AM, PT TAKES O2 OFF WHILE TRANSFERING @TIMES & CHECKED SPO2 ON RA PT WAS 86%. TELE NSR W/HR 87. CBG 172 @HS. THIS AM PT ASKED TESTER [employer] TO CALL & REPORTED SHE WAS TRYING TO GET AHOLD OF HIM TO COME PICK HER UP. EDUCATED PT SHE WOULD HAVE TO WAIT UNTIL MD GAVE DC ORDERS & PT STATED SHE WAS LEAVING SOON COULD COME GET HER, I WILL PASS INFO TO ONCOMING NURSE.
[2019-10-14 14:07] LABS: ANA DIRECT Positive (Negative); ANTI-CENTROMERE B ANTIBODIES <0.2 AI (0.0-0.9); ANTI-DNA (DS) AB QN 12 IU/mL (0-9); ANTI-JO-1 <0.2 AI (0.0-0.9); ANTICHROMATIN ANTIBODIES <0.2 AI (0.0-0.9); ANTIMYELOPEROXIDASE (MPO) ABS <9.0 U/mL (0.0-9.0); ANTIPROTEINASE 3 (PR-3) ABS <3.5 U/mL (0.0-3.5); ANTIRIBOSOMAL P ANTIBODIES <0.2 AI (0.0-0.9); ANTISCLERODERMA-70 ANTIBODIES <0.2 AI (0.0-0.9); ATYPICAL PANCA <1:20 titer (Neg:<1:20); CYTOPLASMIC (C-ANCA) <1:20 titer (Neg:<1:20); PERINUCLEAR (P-ANCA) <1:20 titer (Neg:<1:20); RNP ANTIBODIES <0.2 AI (0.0-0.9); SJOGREN'S ANTI-SS-A >8.0 AI (0.0-0.9); SJOGREN'S ANTI-SS-B <0.2 AI (0.0-0.9); SMITH ANTIBODIES <0.2 AI (0.0-0.9); SMITH/RNP ANTIBODIES <0.2 AI (0.0-0.9)
[2019-10-14 15:07] LABS: A/G RATIO 1.1 (0.7-1.7); ALBUMIN 2.3 g/dL (2.9-4.4); ALPHA-1-GLOBULIN 0.3 g/dL (0.0-0.4); ALPHA-2-GLOBULIN 0.6 g/dL (0.4-1.0); BETA GLOBULIN 0.7 g/dL (0.7-1.3); GAMMA GLOBULIN 0.7 g/dL (0.4-1.8); GLOBULIN, TOTAL 2.3 g/dL (2.2-3.9); IMMUNOGLOBULIN A, QN, SERUM 275 mg/dL (64-422); IMMUNOGLOBULIN G, QN, SERUM 791 mg/dL (586-1602); IMMUNOGLOBULIN M, QN, SERUM 42 mg/dL (26-217); M-SPIKE Not Observed g/dL (Not Observed); PROTEIN, TOTAL, SERUM 4.6 g/dL (6.0-8.5)
--- NOTE | 2019-10-14 18:38 | NUR ---
SHIFT SUMAMRY: PT A&O; ANXIOUS R/T CURRENT MEDICAL CONDITION; COOPERATIVE WITH CARE. TELE D/C'd THIS SHIFT; PT HAS BEEN SR IN 80s. ASPIRATION PRECAUTIONS; PO MEDS WHOLE/CRUSHED IN APPLESAUCE. THERAPISTS RECOMMENDING SNF; PT REFUSING. INFECTIOUS DISEASE (DR MCCARTHY) FOLLOWING. WCTM.
[2019-10-15 04:42] LABS: BASOPHILS ABSOLUTE AUTO 0.08 K/mm3 (0.00-0.23); BASOPHILS PERCENT AUTO 0 % (0-2); EOSINOPHILS ABSOLUTE AUTO 0.78 K/mm3 (0.00-0.68); EOSINOPHILS PERCENT AUTO 3 % (0-6); Hematocrit 26.1 % (33.0-51.0); Hemoglobin 8.2 g/dL (11.5-16.0); IMMATURE GRAN ABSOLUTE AUTO 0.28 K/mm3 (0.00-0.10); IMMATURE GRAN PERCENT AUTO 1 % (0-1); LYMPHOCYTES ABSOLUTE AUTO 2.54 K/mm3 (0.84-5.20); LYMPHOCYTES PERCENT AUTO 9 % (21-46); MONOCYTES ABSOLUTE AUTO 2.45 K/mm3 (0.16-1.47); MONOCYTES PERCENT AUTO 9 % (4-13); Mean Corpuscular HGB 29.4 pg (26.0-34.0); Mean Corpuscular HGB Conc 31.4 g/dL (31.5-36.5); Mean Corpuscular Volume 94 fL (80-100); Mean Platelet Volume 10.1 fL (9.1-12.4); NEUTROPHILS ABSOLUTE AUTO 22.82 K/mm3 (1.96-9.15); NEUTROPHILS PERCENT AUTO 79 % (41-73); NRBC ABSOLUTE 0.06 K/mm3 (0.00-0.02); NRBC Auto 0.2 /100 WBC (0.0-0.2); Platelet Count 350 K/mm3 (150-400); RDW Coefficient Variation 14.4 % (11.7-14.2); RDW Standard Deviation 48.9 fL (35.1-46.3); Red Blood Cell Count 2.79 M/mm3 (3.80-5.20); White Blood Cell Count 28.95 K/mm3 (4.00-11.30)
[2019-10-15 05:02] LABS: Anion Gap 6 mmol/L (6-16); Blood Urea Nitrogen 43 mg/dL (8-24); Bun/Creatinine Ratio 24.9 (12.0-20.0); CO2, Blood 24 mmol/L (21-32); Calcium, Blood 7.7 mg/dL (8.5-10.1); Chloride, Blood 104 mmol/L (98-108); Creatinine, Blood 1.73 mg/dL (0.40-1.00); Glomerular Filtration Rate 30 (60-); Glucose, Blood 159 mg/dL (70-99); Phosphorus, Blood 2.2 mg/dL (2.5-4.9); Potassium, Blood 5.1 mmol/L (3.5-5.5); Sodium, Blood 134 mmol/L (136-145)
--- NOTE | 2019-10-15 05:46 | NUR ---
SHIFT SUMMARY AOX4, ANSWERS ORIENTATION QUESTIONS APPROPRIATE. FORGETFUL @TIMES. VSS. DENIES PAIN OR N/V. REPORTS BREATHING IS "MUCH BETTER" LUNGS SOUND DIM T/O. E/U RESPIRATIONS, SPO2 >90% ON 2L O2. PT COMPLAINS OF CONSTANT DRY COUGH DURING THE NIGHT & STATES HAD IT BEFORE COMING TO THE HOSPITAL & HAS OCCASIONAL CLEAR THIN MUCUS W/COUGH. NOTIFIED DR JACKSON & HE ORDERED MEGHAN NELSON, MEDICATED 1X. RLE FOOT IS STILL RED W/+2 EDEMA. PEDAL PULSES ARE WEAK TO PALPATE. CALL LIGHT IN REACH.
--- NOTE | 2019-10-15 18:35 | NUR ---
SHIFT SUMMARY EATING MINIMAL AMOUNTS STATING THE FOOD IS TERRIBLE AND SHE DOESN'T LIKE IT. DRINKING HER MILK ONLY. UP TO BATHROOM WITH 1 PERSON ASSIST USING A FWW. REPORTS SOB WITH ANY EXERTION. REFUSING TO WEAR OXYGEN. WALKED IN HALLWAY TO THE END AND BACK AFTER A REST.
--- NOTE | 2019-10-16 04:32 | NUR ---
SHIFT SUMMARY ASSUMED CARE OF PT AT 1900. PT IS A/OX4, STATES SHE HAS NEUROPATHY IN HER FEET. LUNG SOUNDS HAVE CRACKLES AT THE BASES, HEART SOUNDS REGULAR, DENIES CP/SOB. PT STATES HER ABD IS A LITTLE MORE DISTENDED THAN NORMAL AND IS SLIGHTLY TENDER WITH PALPIATION. PT WALKS TO THE BATHROOM WITH SBA AND WALKER. PT HAS BRUISING T/O GROIN AND UPPER THIGHS. L GROIN SITE HAS SCANT YELLOW DISCHARGE WITH REDNESSS AROUND THE EDGES, PICTURES DOCUMENTED AND NOTIFIED CHARGE NURSEDK WITH GEL PLACED ON WOUND. PT HAS MISSING TOES ON R FOOT AND HAS WOUNDS ON L TOES, DOCUMENTED IN CHART. NO ACUTE EVENTS DURING THE NIGHT. PT SLEPT T/O THE NIGHT. CALL LIGHT IN REACH, BED IN LOWEST POSTION, WILL CONTINUE TO MONITOR UNTIL DAYSHIFT NURSE ARRIVES.
[2019-10-16 04:45] LABS: BASOPHILS ABSOLUTE AUTO 0.09 K/mm3 (0.00-0.23); BASOPHILS PERCENT AUTO 0 % (0-2); EOSINOPHILS ABSOLUTE AUTO 0.69 K/mm3 (0.00-0.68); EOSINOPHILS PERCENT AUTO 2 % (0-6); Hematocrit 25.6 % (33.0-51.0); Hemoglobin 8.1 g/dL (11.5-16.0); IMMATURE GRAN ABSOLUTE AUTO 0.31 K/mm3 (0.00-0.10); IMMATURE GRAN PERCENT AUTO 1 % (0-1); LYMPHOCYTES ABSOLUTE AUTO 2.81 K/mm3 (0.84-5.20); LYMPHOCYTES PERCENT AUTO 10 % (21-46); MONOCYTES PERCENT AUTO 8 % (4-13); Mean Corpuscular HGB 29.5 pg (26.0-34.0); Mean Corpuscular HGB Conc 31.6 g/dL (31.5-36.5); Mean Corpuscular Volume 93 fL (80-100); Mean Platelet Volume 9.9 fL (9.1-12.4); NEUTROPHILS PERCENT AUTO 78 % (41-73); NRBC ABSOLUTE 0.05 K/mm3 (0.00-0.02); NRBC Auto 0.2 /100 WBC (0.0-0.2); Platelet Count 409 K/mm3 (150-400); RDW Coefficient Variation 14.6 % (11.7-14.2); RDW Standard Deviation 48.6 fL (35.1-46.3); Red Blood Cell Count 2.75 M/mm3 (3.80-5.20)
[2019-10-16 05:02] LABS: Anion Gap 5 mmol/L (6-16); Blood Urea Nitrogen 44 mg/dL (8-24); Bun/Creatinine Ratio 25.7 (12.0-20.0); CO2, Blood 25 mmol/L (21-32); Calcium, Blood 7.7 mg/dL (8.5-10.1); Chloride, Blood 105 mmol/L (98-108); Creatinine, Blood 1.71 mg/dL (0.40-1.00); Glomerular Filtration Rate 30 (60-); Glucose, Blood 194 mg/dL (70-99); Phosphorus, Blood 2.4 mg/dL (2.5-4.9); Potassium, Blood 5.6 mmol/L (3.5-5.5); Sodium, Blood 135 mmol/L (136-145)
[2019-10-16 12:10] LABS: M-SPIKE, % Not Observed % (Not Observed); PROTEIN,TOTAL,URINE 28.5 mg/dL (Not Estab.)
--- NOTE | 2019-10-16 19:14 | NUR ---
SHIFT SUMMARY PT UP TO CHAIR FOR EACH MEAL. HAS BEEN ENCOURAGED TO EAT DESPITE NOT LIKING THE FOOD TO HELP HER GET STRONGER AND BE ABLE TO GO HOME. GETS WINDED WITH ACTIVITY. WANTS TO SLEEP WHEN NOT BOTHERED. SATS IN THE 80S THIS MORNING AND O2 PLACED BUT PT REMOVED LATER. SATS IN 90S THIS AFTERNOON ON ROOM AIR.
[2019-10-17 04:37] LABS: BASOPHILS ABSOLUTE AUTO 0.11 K/mm3 (0.00-0.23); BASOPHILS PERCENT AUTO 0 % (0-2); EOSINOPHILS ABSOLUTE AUTO 1.03 K/mm3 (0.00-0.68); EOSINOPHILS PERCENT AUTO 4 % (0-6); Hematocrit 26.4 % (33.0-51.0); Hemoglobin 8.4 g/dL (11.5-16.0); IMMATURE GRAN ABSOLUTE AUTO 0.25 K/mm3 (0.00-0.10); IMMATURE GRAN PERCENT AUTO 1 % (0-1); LYMPHOCYTES ABSOLUTE AUTO 3.45 K/mm3 (0.84-5.20); LYMPHOCYTES PERCENT AUTO 12 % (21-46); MONOCYTES ABSOLUTE AUTO 2.33 K/mm3 (0.16-1.47); MONOCYTES PERCENT AUTO 8 % (4-13); Mean Corpuscular HGB 29.9 pg (26.0-34.0); Mean Corpuscular HGB Conc 31.8 g/dL (31.5-36.5); Mean Corpuscular Volume 94 fL (80-100); Mean Platelet Volume 9.7 fL (9.1-12.4); NEUTROPHILS ABSOLUTE AUTO 20.78 K/mm3 (1.96-9.15); NEUTROPHILS PERCENT AUTO 74 % (41-73); NRBC Auto 0.4 /100 WBC (0.0-0.2); Platelet Count 442 K/mm3 (150-400); RDW Coefficient Variation 14.6 % (11.7-14.2); Red Blood Cell Count 2.81 M/mm3 (3.80-5.20); White Blood Cell Count 27.95 K/mm3 (4.00-11.30)
[2019-10-17 04:57] LABS: Albumin, Blood 1.9 g/dL (3.4-5.0); Albumin/Globulin Ratio 0.4 (0.8-1.8); Bilirubin, Total 1.3 mg/dL (0.1-1.0); Bun/Creatinine Ratio 24.4 (12.0-20.0); Calcium, Blood 7.9 mg/dL (8.5-10.1); Creatinine, Blood 1.97 mg/dL (0.40-1.00); Globulin, Blood 4.3 g/dL (2.2-4.0); Potassium, Blood 5.2 mmol/L (3.5-5.5); Total Protein, Blood 6.2 g/dL (6.4-8.2)
--- NOTE | 2019-10-17 06:31 | NUR ---
SHIFT SUMMARY PT IS AN 79 Y/O FEMALE, ADMITTED FOR RLE CLAUDICATION. SHE HAD STENTS PLACED AND A REVASCULARIZATION ON 10/06. PT IS A&O X 3, SBA TO THE BATHROOM. PT CAN BE INCOOPERATIVE WITH CARE AT TIMES, AND WAS PLACED ON A BED ALARM DURING THE NIGHT DUE TO NOT USING HER CALL LIGHT. PT DENIED ANY COMPLAINTS OF PAIN OR NAUSEA, BUT DID REPORT MILD DYSPNEA WITH EXERTION. VITAL SIGNS STABLE. NO OTHER ACUTE CHANGES IN PT CONDITION NOTED. WILL CONTINUE TO MONITOR AND TREAT PER EMAR UNTIL HAND OFF TO DAY SHIFT RN.
[2019-10-17] MEDS ORDERED: ASPI81CH PO (14:31)
[2019-10-17] MEDS ORDERED: BENZ100A PO (14:31)
[2019-10-17] MEDS ORDERED: RA PROBIOTIC C PO (14:35)
[2019-10-17] MEDS ORDERED: METO25 PO (14:44)
[2019-10-17] MEDS ORDERED: LEVO750 PO (14:44)
[2019-10-17] MEDS ORDERED: ELIQUIS2.5 MG PO (14:50)
--- NOTE | 2019-10-17 15:46 | NUR ---
DISCHARGE SUMMARY PT AXO. DISCHARGED TO HOME JUST PRIOR TO THIS NOTE. PT LEFT ROOM VIA WHEELCHAIR WITH OBSTETRICS SCRUB NURSE ESCORT. PT EDUCATED ON ALL DISCHAGE INSTRUCTIONS THOUGH PT HAS POOR UNDERSTANDING OF CURRENT ILLNESS AND INDICATIONS FOR FOLLOWING UP WITH PCP, DR BOWLING AND DR ROSALES. NURSE REINFORCED AND EDUCATED PATIENT TO TAKE MEDICATIONS PRESCRIBED AND TO FOLLOW UP. SHE AGREES. ALL QUESTIONS ANSWERED. IV REMOVED AND BELONGINGS RETURNED. PT REFUSED AM MEDICATIONS THIS MORNING, DR HANNON NOTIFIED.
== END 2019-10-17 15:44 | disposition home health service (06) | DRG 270 ==
LOC: MHTC 05:59 → ICUE 13:04 → MHTC 10-09 08:03 → ICUE 10-09 08:04 → MEDS 10-09 10:10 → PCU 10-09 10:10 → ICUE 10-09 10:10 → PCU 10-11 17:59 → MEDS 10-13 18:49
PROVIDERS: Internal Medicine; Internal Medicine Nephrology; Nurse Practitioner Acute Care; ADMIT Radiology Diagnostic Radiology
PROC: B41G1ZZ Fluoroscopy of Left Lower Extremity Arteries using Low Osmolar Contrast (ICD-10-PCS; principal; 2019-10-07)
PROC: B41F1ZZ Fluoroscopy of Right Lower Extremity Arteries using Low Osmolar Contrast (ICD-10-PCS; 2019-10-07)
PROC: 3E05317 Introduction of Other Thrombolytic into Peripheral Artery, Percutaneous Approach (ICD-10-PCS; 2019-10-07)
PROC: 04CK3ZZ Extirpation of Matter from Right Femoral Artery, Percutaneous Approach (ICD-10-PCS; 2019-10-07)
PROC: 047T3ZZ Dilation of Right Peroneal Artery, Percutaneous Approach (ICD-10-PCS; 2019-10-07)
PROC: 04CK3ZZ Extirpation of Matter from Right Femoral Artery, Percutaneous Approach (ICD-10-PCS; 2019-10-07)
PROC: 047K34Z Dilation of Right Femoral Artery with Drug-eluting Intraluminal Device, Percutaneous Approach (ICD-10-PCS; 2019-10-07)
PROC: 047P34Z Dilation of Right Anterior Tibial Artery with Drug-eluting Intraluminal Device, Percutaneous Approach (ICD-10-PCS; 2019-10-07)
PROC: 047M3ZZ Dilation of Right Popliteal Artery, Percutaneous Approach (ICD-10-PCS; 2019-10-07)
DX: E11.52 Type 2 diabetes mellitus with diabetic peripheral angiopathy with gangrene (principal); J18.9 Pneumonia, unspecified organism; I21.4 Non-ST elevation (NSTEMI) myocardial infarction; N17.9 Acute kidney failure, unspecified; N18.5 Chronic kidney disease, stage 5; N39.0 Urinary tract infection, site not specified; D62 Acute posthemorrhagic anemia; K52.1 Toxic gastroenteritis and colitis; E78.2 Mixed hyperlipidemia; E78.5 Hyperlipidemia, unspecified; Z79.4 Long term (current) use of insulin; E11.22 Type 2 diabetes mellitus with diabetic chronic kidney disease; E11.51 Type 2 diabetes mellitus with diabetic peripheral angiopathy without gangrene; Z89.431 Acquired absence of right foot; B96.20 Unspecified Escherichia coli [E. coli] as the cause of diseases classified elsewhere; G47.33 Obstructive sleep apnea (adult) (pediatric); E66.9 Obesity, unspecified; T36.95XA Adverse effect of unspecified systemic antibiotic, initial encounter; Y92.239 Unspecified place in hospital as the place of occurrence of the external cause; L97.519 Non-pressure chronic ulcer of other part of right foot with unspecified severity
CPT/HCPCS: 36247; 36415; 36430; 36556; 37184; 37211; 37214; 37227; 37228; 37230; 37232; 51702; 71045; 71046; 73630; 74176; 75710; 75716; 75774; 76770; 76882; 80048; 80053; 80069; 80076; 81001; 82272; 82550; 82784; 82947; 83516; 83520; 83615; 83735; 83880; 84132; 84145; 84156; 84165; 84166; 84484; 85014; 85018; 85025; 85347; 85384; 85610; 85651; 85730; 86038; 86256; 86334; 86335; 86850; 86900; 86901; 86923; 87040; 87070; 87077; 87086; 87186; 87205; 87449; 87493; 92526; 92610; 93005; 93010; 93306; 97110; 97163; 97530; 99152; 99153; A9270-GY; C1714; C1725; C1751; C1757; C1760; C1769; C1874; C1887; C1894; C2623; J0360; J0692; J0696; J0881; J1200; J1644; J1940; J2060; J2250; J2543; J2997; J3010; J7030; J7040; J7050; P9016; Q9967

== ENCOUNTER → 2019-10-22 | Outpatient (CLI) | payer MEDICARE, OTHER ==
[~2019-10-22] MED LIST changes: +ASPI81CH PO; +BENZ100A PO; +ELIQUIS2.5 MG PO; +LEVO750 PO; +METO25 PO; +RA PROBIOTIC C PO
[2019-10-23 15:31] LABS: BASOPHILS ABSOLUTE AUTO 0.08 K/mm3 (0.00-0.23); BASOPHILS PERCENT AUTO 1 % (0-2); EOSINOPHILS ABSOLUTE AUTO 0.31 K/mm3 (0.00-0.68); EOSINOPHILS PERCENT AUTO 2 % (0-6); Hematocrit 34.6 % (33.0-51.0); Hemoglobin 9.7 g/dL (11.5-16.0); IMMATURE GRAN ABSOLUTE AUTO 0.08 K/mm3 (0.00-0.10); IMMATURE GRAN PERCENT AUTO 1 % (0-1); LYMPHOCYTES ABSOLUTE AUTO 2.58 K/mm3 (0.84-5.20); LYMPHOCYTES PERCENT AUTO 18 % (21-46); MONOCYTES ABSOLUTE AUTO 0.96 K/mm3 (0.16-1.47); MONOCYTES PERCENT AUTO 7 % (4-13); Mean Corpuscular HGB 29.6 pg (26.0-34.0); Mean Platelet Volume 10.3 fL (9.1-12.4); NEUTROPHILS ABSOLUTE AUTO 10.41 K/mm3 (1.96-9.15); NEUTROPHILS PERCENT AUTO 72 % (41-73); Platelet Count 550 K/mm3 (150-400); RDW Coefficient Variation 16.9 % (11.7-14.2); RDW Standard Deviation 61.4 fL (35.1-46.3); Red Blood Cell Count 3.28 M/mm3 (3.80-5.20); White Blood Cell Count 14.42 K/mm3 (4.00-11.30)
[2019-10-23 15:51] LABS: Mean Corpuscular Volume 106 fL (80-100)
[2019-10-23 16:10] LABS: Bun/Creatinine Ratio 16.1 (12.0-20.0); Calcium, Blood 8.6 mg/dL (8.5-10.1); Creatinine, Blood 1.86 mg/dL (0.40-1.00); Potassium, Blood 5.7 mmol/L (3.5-5.5); Thyroid Stimulating Hormone 20.2 uIU/mL (0.360-4.800)
== END | disposition home or self-care (01) ==
LOC: LAB 14:39 → LAB SHORT 14:39
PROVIDERS: Nurse Practitioner Primary Care
DX: E11.21 Type 2 diabetes mellitus with diabetic nephropathy (principal); E11.22 Type 2 diabetes mellitus with diabetic chronic kidney disease; I12.9 Hypertensive chronic kidney disease with stage 1 through stage 4 chronic kidney disease, or unspecified chronic kidney disease; N18.3 Chronic kidney disease, stage 3 (moderate)
CPT/HCPCS: 80048; 83036; 84443; 85025

== ENCOUNTER → 2019-12-31 | Outpatient (CLI) | payer MEDICARE, OTHER ==
[2019-12-31 13:31] LABS: Creatinine, Urine Random 69.9 mg/dL (27.00-270.00); Protein, Urine Random 12.8 mg/dL (0.0-11.9)
== END | disposition home or self-care (01) ==
LOC: LAB 10:46 → LAB SHORT 10:46
PROVIDERS: Internal Medicine
DX: N17.9 Acute kidney failure, unspecified (principal)
CPT/HCPCS: 82570; 84156

== ENCOUNTER 2020-01-19 17:01 | Inpatient (IN) | payer MEDICARE, OTHER ==
[~2020-01-19] VITALS: Ht 162.6 cm; Wt 65.0 kg
[~2020-01-19 17:01] MED LIST changes: -ATOR20 PO; +ATORVASTATIN CA40 M1 PO; +HUMALOG100 UNIT/1 SC; -Humalog100 UNIT/1; -INSDET100; +LEVEMIR100 UNIT/1 SC
[2020-01-19 18:03] LABS: BASOPHILS ABSOLUTE AUTO 0.04 K/mm3 (0.00-0.23); BASOPHILS PERCENT AUTO 0 % (0-2); EOSINOPHILS ABSOLUTE AUTO 0.16 K/mm3 (0.00-0.68); EOSINOPHILS PERCENT AUTO 1 % (0-6); Hematocrit 37.8 % (33.0-51.0); Hemoglobin 12.2 g/dL (11.5-16.0); IMMATURE GRAN ABSOLUTE AUTO 0.03 K/mm3 (0.00-0.10); IMMATURE GRAN PERCENT AUTO 0 % (0-1); LYMPHOCYTES ABSOLUTE AUTO 3.03 K/mm3 (0.84-5.20); LYMPHOCYTES PERCENT AUTO 26 % (21-46); MONOCYTES ABSOLUTE AUTO 0.77 K/mm3 (0.16-1.47); MONOCYTES PERCENT AUTO 7 % (4-13); Mean Corpuscular HGB Conc 32.3 g/dL (31.5-36.5); Mean Corpuscular Volume 90 fL (80-100); Mean Platelet Volume 10.7 fL (9.1-12.4); NEUTROPHILS ABSOLUTE AUTO 7.72 K/mm3 (1.96-9.15); NEUTROPHILS PERCENT AUTO 66 % (41-73); Platelet Count 229 K/mm3 (150-400); RDW Coefficient Variation 13.4 % (11.7-14.2); RDW Standard Deviation 44.4 fL (35.1-46.3); Red Blood Cell Count 4.21 M/mm3 (3.80-5.20); White Blood Cell Count 11.75 K/mm3 (4.00-11.30)
[2020-01-19] MEDS ORDERED: EUTHYROX50 MCG PO (18:07)
[2020-01-19] MEDS ORDERED: DOXY100 PO (18:08)
[2020-01-19] MEDS ORDERED: Mupirocin22 GM TD (18:09)
[2020-01-19] MEDS ORDERED: METO25ER PO (18:10)
[2020-01-19] MEDS ORDERED: LISI5 PO (18:11)
[2020-01-19 18:16] LABS: International Normalized Ratio 1.04; Prothrombin Time Results 11.1 Sec (9.7-11.5)
[2020-01-19 18:20] LABS: Albumin, Blood 2.7 g/dL (3.4-5.0); Albumin/Globulin Ratio 0.7 (0.8-1.8); Bilirubin, Total 0.6 mg/dL (0.1-1.0); Calcium, Blood 9.3 mg/dL (8.5-10.1); Creatinine, Blood 1.79 mg/dL (0.40-1.00); Globulin, Blood 3.9 g/dL (2.2-4.0); Potassium, Blood 5.4 mmol/L (3.5-5.5); Total Protein, Blood 6.6 g/dL (6.4-8.2)
--- NOTE | 2020-01-19 19:22 | NUR ---
PT ARRIVED TO THE UNIT VIA DIRECT ADMIT BY DR ROSALES. PT IS HERE FOR CRITICIAL LIMB ISCHEMIA RLE. PT IS ALERT AND ORIENTED VERY HARD OF HEARING. VITALS HRR SINUS CARLTON 50'S, BP SYSTOLIC 140'S, SATS ABOVE 95% ON RA, AFEBRILE. PT WAS STARTED ON HEPARIN GTT, DR GATES ALREADY WENT AND SEE PT. DENIES ANY CHEST PAIN/PALPITATIONS, RIGHT MIDDLE TOE SLIGHTLY PAINFUL TO TOUCH. UNABLE TO PALPATE PEDAL PULSES THROUGH DOPPLER. HEPARIN GTT RUNNING AT 15U/KG/HR. REPORT GIVEN TO ONCOMING SHIFT
--- NOTE | 2020-01-19 22:46 | NUR ---
DOPPLERED L FOOT - STRONG, MARKED ON FOOT. UNABLE TO DOPPLER R FOOT.
--- NOTE | 2020-01-20 05:30 | NUR ---
PT RESTED COMFORTABLY THROUGH NIGHT INTERMITTENT CONFUSION - LIKELY R/T TIME OF DAY BED ALARM ON - PT SAYS SHE "FORGETS" SHES GOT TO CALL AND HAS THE IV HOOKED UP TO HER STAND BY ASSIST VOIDING >1L SMALL AMT OF DIARRHEA NO C/O PAIN DOPPLERED PULSES A SECOND TIME WITH NO CHANGES FROM PRREVIOUS NOTE VSS CALL LIGHT WITHIN REACH, BED IN LOWEST POSITION. WILL CONTINUE TO MONITOR.
--- NOTE | 2020-01-20 05:59 | NUR ---
PTT DRAWN - SHOWING CRITICALLY HIGH >139. RN CALLED PHARMACY - PHARMACY INSTRUCTED TO HOLD HEP GTT FOR ONE HOUR. HEP GTT HELD AT 0600 01/20/20.
[2020-01-20 07:50] LABS: BASOPHILS ABSOLUTE AUTO 0.06 K/mm3 (0.00-0.23); BASOPHILS PERCENT AUTO 0 % (0-2); EOSINOPHILS PERCENT AUTO 4 % (0-6); Hematocrit 36.9 % (33.0-51.0); Hemoglobin 12.2 g/dL (11.5-16.0); IMMATURE GRAN ABSOLUTE AUTO 0.04 K/mm3 (0.00-0.10); IMMATURE GRAN PERCENT AUTO 0 % (0-1); LYMPHOCYTES ABSOLUTE AUTO 5.08 K/mm3 (0.84-5.20); LYMPHOCYTES PERCENT AUTO 36 % (21-46); MONOCYTES ABSOLUTE AUTO 1.06 K/mm3 (0.16-1.47); MONOCYTES PERCENT AUTO 8 % (4-13); Mean Corpuscular HGB 29.1 pg (26.0-34.0); Mean Corpuscular HGB Conc 33.1 g/dL (31.5-36.5); Mean Corpuscular Volume 88 fL (80-100); Mean Platelet Volume 10.8 fL (9.1-12.4); NEUTROPHILS ABSOLUTE AUTO 7.42 K/mm3 (1.96-9.15); NEUTROPHILS PERCENT AUTO 52 % (41-73); Platelet Count 242 K/mm3 (150-400); RDW Coefficient Variation 13.3 % (11.7-14.2); RDW Standard Deviation 42.9 fL (35.1-46.3); Red Blood Cell Count 4.19 M/mm3 (3.80-5.20); White Blood Cell Count 14.16 K/mm3 (4.00-11.30)
[2020-01-20 08:10] LABS: Albumin, Blood 2.6 g/dL (3.4-5.0); Albumin/Globulin Ratio 0.7 (0.8-1.8); Bilirubin, Total 0.6 mg/dL (0.1-1.0); Bun/Creatinine Ratio 22.4 (12.0-20.0); Calcium, Blood 9.1 mg/dL (8.5-10.1); Creatinine, Blood 1.52 mg/dL (0.40-1.00); Globulin, Blood 3.9 g/dL (2.2-4.0); Potassium, Blood 5.2 mmol/L (3.5-5.5); Total Protein, Blood 6.5 g/dL (6.4-8.2)
--- NOTE | 2020-01-20 17:37 | NUR ---
SHIFT SUMMARY PT IS ALERT TO PERSON, VERY FORGETFUL AND NEEDS REMINDING OF REASON SHE IS IN THE HOSPITAL. BED ALARM REMAINED INPLACE FOR SAFETY. FOR SAFETY PT WILL BE TRANSFERRED TO ROOM CLOSER TO NURSES STATION AFTER PROCEDURE. RIGHT FOOT REMAINED COOL AND UNABLE TO DOPPLER PULSES. LEFT FOOT WAS DOPPLER PULSE ONLY AND WAS WARM. PT WAS ON HEPARIN GTT UPTO TRANSFER TO HEART CENTER, WAS STOPPED FOR CRITICAL PTT AND PER HEART CENTER TRANSFER. TELEMETRY SHOWS PT TO BE IN SINUS CARLTON/RHYTHM TODAY, VITALS HAVE BEEN STABLE.
--- NOTE | 2020-01-21 00:28 | NUR ---
FOUND SITTING AT FOOT OF BED ATTEMPTING TO GET OOB. STATED THAT SHE NEEDED TO URINATE. PT PLACED ON BEDPAN AND URINATED 50ML. STATED THAT IT HURT WHEN SHE URINATED. 20G RIGHT FA PIV FOUND IN FLOOR CONNECTED TO IVF WITH CATH TIP INTACT. PRESSURE APPLIED TO INSERTION SITE FOR 10 MINUTES DUE TO OOZING. LINEN CHANGE COMPLETED. REPOSITIONED FOR COMFORT. WILL RESTART PIV. DENEIS FURTHER NEEDS OR WANTS AT THIS TIME. SAFETY MEASURES IN PLACE. WILL CONTINUE TO MONITOR.
[2020-01-21 01:36] LABS: Albumin, Blood 2.5 g/dL (3.4-5.0); Anion Gap 6 mmol/L (6-16); Blood Urea Nitrogen 31 mg/dL (8-24); Bun/Creatinine Ratio 18.3 (12.0-20.0); CO2, Blood 22 mmol/L (21-32); Calcium, Blood 8.8 mg/dL (8.5-10.1); Chloride, Blood 106 mmol/L (98-108); Creatinine, Blood 1.69 mg/dL (0.40-1.00); Glomerular Filtration Rate 31 (60-); Glucose, Blood 88 mg/dL (70-99); Phosphorus, Blood 3.1 mg/dL (2.5-4.9); Potassium, Blood 5.1 mmol/L (3.5-5.5); Sodium, Blood 134 mmol/L (136-145)
--- NOTE | 2020-01-21 04:37 | NUR ---
SHIFT SUMMARY LYING ON RIGHT SIDE WHILE FACING THE WINDOW WITH EYES CLOSED. HAS RESTED WELL AFTER AMBULATING TO COMMODE TO URINATE. WAS UNABLE TO URINATE VERY MUCH INTO BEDPAN. SCANT AMOUNT OF OOZING NOTED UNDER WINDOW DRESSING ON GROIN SITE. DENIES PAIN OR DISCOMFORT. RLE AND IMPROVED WARMTH AND PINK COLOR NOTED, DENIES N/T. INTERMITTENT CONFUSION IMPROVED, STILL REQUIRES FREQUENT REORIENTING. DENIES FURTHER NEEDS AT THIS TIME. SAFETY MEASURES IN PLACE. WILL CONTINUE TO MONITOR AND GIVE HAND OFF TO ONCOMING SHIFT USING SBAR.
--- NOTE | 2020-01-21 05:45 | NUR ---
HEPARIN RESTART APTT 48.9, RX ORDERED RESTART OF HEPARING AT 10U/KG/HR, 13.4ML/HR. NEW 20G PIV PLACED TO LEFT FA X1 ATTEMPT, TOLERATED WELL. DENIES DISCOMFORT, OR FRTHER NEEDS. SAFETY MEASURES IN PLACE. WILL CONTINUE TO MONITOR.
--- NOTE | 2020-01-21 10:24 | NUR ---
ASSUME CARE; REPORT RECEIVED FROM JELENA. PT IN BED RESTING, RESPONDS TO QUESTIONS APPROPRIATELY, CONFUSED AT TIMES. VITALS HRR SINUS CARLTON 55, BP SYSTOLIC 130'S, SATS ABOVE 95% ON ROOMAIR, AFEBRILE. RIGHT ELBOW SKIN TEAR WAS BLEEDING THIS AM, DRESSING'S CHANGED WRAPPED WTIH COBAN. DENIES ANY PAIN AT THIS TIME. HEPARIN GTT RUNNING AT 10U/KG/HR AND NS AT 75MLS/HR. PULSES PALPABLE ON BLE STILL FAINT. NO OTHER ISSUES ENCOUNTERED AT THIS TIME WILL MONITOR
[2020-01-21] MEDS ORDERED: ELIQUIS2.5 MG PO (16:32)
--- NOTE | 2020-01-21 18:02 | NUR ---
PT DISCHARGE TO HOME TODAY WITH DISCHARGE ORDERS. PT TO START ON ELIQUIS 2.5MG BID PER DR ROSALES. PT TO FOLLOW UP WITH HIM IN WITHIN 2 WEEKS. PT CURRENTLY HASNT ESTABLISH CARE WITH PCP AT THIS TIME PER THEY'RE SWITCHING TO A NEW PROVIDER AT [facility] AWARE TO CALL AND MAKE AN APPT POST HOSPITALIZATION. PRESCRIPTIONS SENT TO [facility]. ALL BELONGINGS SENT WITH PT. PT ACCOMPANIED VIA WHEELCAHIR FOR TRANSPORT
== END 2020-01-21 16:58 | disposition home or self-care (01) | DRG 271 ==
LOC: PCU 17:01
PROVIDERS: Internal Medicine; Pharmacist; ADMIT Internal Medicine
PROC: 04CK3ZZ Extirpation of Matter from Right Femoral Artery, Percutaneous Approach (ICD-10-PCS; principal; 2020-01-20)
PROC: 04CM3ZZ Extirpation of Matter from Right Popliteal Artery, Percutaneous Approach (ICD-10-PCS; 2020-01-20)
PROC: 3E05317 Introduction of Other Thrombolytic into Peripheral Artery, Percutaneous Approach (ICD-10-PCS; 2020-01-20)
PROC: 047K3Z1 Dilation of Right Femoral Artery using Drug-Coated Balloon, Percutaneous Approach (ICD-10-PCS; 2020-01-20)
PROC: 047M3ZZ Dilation of Right Popliteal Artery, Percutaneous Approach (ICD-10-PCS; 2020-01-20)
PROC: 047R3ZZ Dilation of Right Posterior Tibial Artery, Percutaneous Approach (ICD-10-PCS; 2020-01-20)
PROC: 047T3ZZ Dilation of Right Peroneal Artery, Percutaneous Approach (ICD-10-PCS; 2020-01-20)
DX: I73.9 Peripheral vascular disease, unspecified (principal); N18.4 Chronic kidney disease, stage 4 (severe); E87.1 Hypo-osmolality and hyponatremia; I12.9 Hypertensive chronic kidney disease with stage 1 through stage 4 chronic kidney disease, or unspecified chronic kidney disease; E11.22 Type 2 diabetes mellitus with diabetic chronic kidney disease; G47.33 Obstructive sleep apnea (adult) (pediatric); E66.9 Obesity, unspecified; E11.319 Type 2 diabetes mellitus with unspecified diabetic retinopathy without macular edema; E78.5 Hyperlipidemia, unspecified; I25.10 Atherosclerotic heart disease of native coronary artery without angina pectoris; I25.2 Old myocardial infarction; Z89.429 Acquired absence of other toe(s), unspecified side; I48.91 Unspecified atrial fibrillation
CPT/HCPCS: 36415; 37186; 37225; 37228; 37232; 75625; 75716; 75774; 80053; 80069; 82550; 82947; 83605; 85025; 85347; 85610; 85730; 99152; 99153; A9270-GY; C1714; C1725; C1757; C1760; C1769; C1884; C1887; C1894; C2623; J1630; J1644; J2250; J2997; J3010; J7030; J7040; J7050; Q9967

== ENCOUNTER → 2021-11-25 | Outpatient (CLI) | payer MEDICARE ==
[~2021-11-25] MED LIST changes: +DOXY100 PO; +EUTHYROX50 MCG PO; +LISI5 PO; +METO25ER PO; +Mupirocin22 GM TD
[2021-11-25 11:44] LABS: Source, Urine Clean Catch
[2021-11-25 14:03] LABS: Appearance, Urine Cloudy (Clear); Bilirubin, Urine Neg (Neg); Blood, Urine 1+ (Neg); Glucose Qualitative, Urine Neg (Neg); Ketones, Urine Neg (Neg); Leukocyte Esterase, Urine 3+ (Neg); Nitrite, Urine Pos (Neg); Protein, Urine 1+ (Neg); Urobilinogen, Urine NORM (Normal)
[2021-11-25 14:25] LABS: Color, Urine Pale Yellow (P-Yellow)
[2021-11-25 14:26] LABS: Bacteria Many /hpf; Squamous Epithelial Cells Few /hpf (Few); White Blood Cells, Urine 25-50 /hpf (0-5)
[2021-11-25 14:35] LABS: Creatinine, Urine Random 36.8 mg/dL (27.00-270.00); Protein, Urine Random 17.3 mg/dL (0.0-11.9); Protein/Creat Ratio, Ur Random 0.5
== END | disposition home or self-care (01) ==
LOC: LAB 07:00 → LAB SHORT 07:00 → LAB FUT 11-21 14:40 → EDSTATUS 11-21 14:40
PROVIDERS: Internal Medicine Nephrology
DX: N18.4 Chronic kidney disease, stage 4 (severe) (principal)
CPT/HCPCS: 81001; 82570; 84156

== ENCOUNTER 2022-04-14 20:30 | Inpatient (IN) | payer MEDICARE, OTHER ==
[~2022-04-14] VITALS: Ht 162.6 cm; Wt 66.7 kg
[~2022-04-14 20:30] MED LIST changes: +FISH OIL 1,2001 EAC4 PO; -FISH OIL 1,2001 EACH PO; -FOLIXAPURE5000 UNIT PO; +VITAMIN D5000 UNIT PO
[2022-04-15 01:46] LABS: Bun/Creatinine Ratio 14.7 (12.0-20.0); Creatinine, Blood 2.32 mg/dL (0.40-1.00); Potassium, Blood 5.2 mmol/L (3.5-5.5)
[2022-04-15 02:23] LABS: BASOPHILS ABSOLUTE AUTO 0.04 K/mm3 (0.00-0.23); BASOPHILS PERCENT AUTO 0 % (0-2); EOSINOPHILS ABSOLUTE AUTO 0.04 K/mm3 (0.00-0.68); EOSINOPHILS PERCENT AUTO 0 % (0-6); Hematocrit 35.6 % (33.0-51.0); Hemoglobin 11.3 g/dL (11.5-16.0); IMMATURE GRAN ABSOLUTE AUTO 0.12 K/mm3 (0.00-0.10); IMMATURE GRAN PERCENT AUTO 1 % (0-1); LYMPHOCYTES ABSOLUTE AUTO 2.53 K/mm3 (0.84-5.20); LYMPHOCYTES PERCENT AUTO 11 % (21-46); MONOCYTES ABSOLUTE AUTO 1.36 K/mm3 (0.16-1.47); MONOCYTES PERCENT AUTO 6 % (4-13); Mean Corpuscular HGB 29.9 pg (26.0-34.0); Mean Corpuscular HGB Conc 31.7 g/dL (31.5-36.5); Mean Corpuscular Volume 94 fL (80-100); Mean Platelet Volume 9.9 fL (9.1-12.4); NEUTROPHILS ABSOLUTE AUTO 20.11 K/mm3 (1.96-9.15); NEUTROPHILS PERCENT AUTO 83 % (41-73); Platelet Count 246 K/mm3 (150-400); RDW Coefficient Variation 12.8 % (11.7-14.2); RDW Standard Deviation 44.4 fL (35.1-46.3); Red Blood Cell Count 3.78 M/mm3 (3.80-5.20)
[2022-04-15 05:09] LABS: BASOPHILS ABSOLUTE AUTO 0.04 K/mm3 (0.00-0.23); BASOPHILS PERCENT AUTO 0 % (0-2); EOSINOPHILS ABSOLUTE AUTO 0.01 K/mm3 (0.00-0.68); EOSINOPHILS PERCENT AUTO 0 % (0-6); Hematocrit 29.1 % (33.0-51.0); Hemoglobin 9.8 g/dL (11.5-16.0); IMMATURE GRAN ABSOLUTE AUTO 0.11 K/mm3 (0.00-0.10); IMMATURE GRAN PERCENT AUTO 1 % (0-1); LYMPHOCYTES ABSOLUTE AUTO 1.86 K/mm3 (0.84-5.20); LYMPHOCYTES PERCENT AUTO 10 % (21-46); MONOCYTES ABSOLUTE AUTO 1.05 K/mm3 (0.16-1.47); MONOCYTES PERCENT AUTO 6 % (4-13); Mean Corpuscular HGB 30.5 pg (26.0-34.0); Mean Corpuscular HGB Conc 33.7 g/dL (31.5-36.5); Mean Corpuscular Volume 91 fL (80-100); NEUTROPHILS ABSOLUTE AUTO 15.83 K/mm3 (1.96-9.15); NEUTROPHILS PERCENT AUTO 84 % (41-73); Platelet Count 251 K/mm3 (150-400); RDW Coefficient Variation 12.8 % (11.7-14.2); RDW Standard Deviation 42.5 fL (35.1-46.3); Red Blood Cell Count 3.21 M/mm3 (3.80-5.20)
--- NOTE | 2022-04-15 05:32 | NUR ---
SHIFT SUMMARY PT A&OX2-3, CALM AND COOPERATIVE WITH CARE. PT COULD NOT ANSWER MOST OF THE ADMITTING QUESTIONS. STATED HER COULD FILL IN THE INFORMATION SHE COULDN'T. MEDICATED FOR PAIN ONCE WITH 0.25MCG FENTANYL. PUREWICK IN PLACE AND TO WALL SUCTION. PT NPO SINCE ARRIVING ON FLOOR. CALL LIGHT WITHIN REACH.
[2022-04-15 05:35] LABS: Albumin, Blood 2.8 g/dL (3.4-5.0); Albumin/Globulin Ratio 0.8 (0.8-1.8); Bilirubin, Total 0.5 mg/dL (0.1-1.0); Bun/Creatinine Ratio 13.8 (12.0-20.0); Calcium, Blood 8.8 mg/dL (8.5-10.1); Creatinine, Blood 2.69 mg/dL (0.40-1.00); Globulin, Blood 3.6 g/dL (2.2-4.0); Potassium, Blood 4.8 mmol/L (3.5-5.5); Thyroid Stimulating Hormone 2.39 uIU/mL (0.360-4.800); Total Protein, Blood 6.4 g/dL (6.4-8.2)
[2022-04-15] MEDS ORDERED: LOSA50 PO (09:53)
--- NOTE | 2022-04-15 16:54 | NUR ---
SHIFT SUMMARY PT A&OX2-3, COOPERATIVE WITH CARE. VSS/RA-BIOX W/O2 SATS >95%, TELE SR @ 77 BPM WITH OCC JUNCTIONAL BEATS, CBGS ACHS OR Q6 WHEN NPO, LSS, COV PER EMAR. ENRIQUE PO ADA DIET. VOID 100 MLS TODAY, BS SHOWS 100 MLS IN BLADDER, IVF @ 75 MLS /HR, PUREWICK IN PLACE. PAIN MANAGED WELL WITH FENT 25 MCGS AND ULTRAM 50 MG Q6P. BUCKS TRACTION ON. PLAN FOR NPO MIDNIGHT AND L HIP FRACTURE REPAIR SUNDAY AT 1000. WILL REPORT TO ONCOMING NOC ASIYA.
--- NOTE | 2022-04-16 05:56 | NUR ---
SHIFT SUMMARY PT HAS BEEN AWAKE OFF AND ON T/O THE NIGHT. PT DENIED PAIN DURING MOST OF THE SHIFT, BUT BEGAN COMPLAINING OF PAIN LATER IN THE MORNING. MEDICATED FOR PAIN PER EMAR ORDERS. AFFECTED EXT REMAINS IN BUCKS TRACTION 5 LBS. LEG EXTERNALLY ROTATED. SHE DENIES N/T AND IS ABLE TO WIGGLE TOES. PT HAS BEEN VOIDING, INCONTINENT. IVF INFUSING. PT ON TELE PVC'S WITH A COUPLE OF MINUTES OF VENTRICULAR TRIGEMANY AT 75, PT ASYMPTOMATIC, DR. RICO NOTIFIED, NO ORDERS GIVEN. PLAN IS FOR SURGERY TODAY. BED IN LOWEST POSITION, CALL LIGHT WITHIN REACH.
--- NOTE | 2022-04-16 06:21 | NUR ---
SHIFT SUMMARY PT DOES NOT KEEP BIOX ON AND REMOVES CONSTANTLY. BIOX HAS AIDED IN PT INCREASED CONFUSION AND AGITATION DUE TO BIOX ALARMING DUE TO HER REMOVING SENSOR FROM FINGER. SATS HAVE BEEN STABLE ON ROOM AIR, REMOVED BIOX FOR NOW DUE TO PT REFUSAL TO WEAR.
[2022-04-16 09:49] LABS: BASOPHILS ABSOLUTE AUTO 0.03 K/mm3 (0.00-0.23); BASOPHILS PERCENT AUTO 0 % (0-2); EOSINOPHILS ABSOLUTE AUTO 0.08 K/mm3 (0.00-0.68); EOSINOPHILS PERCENT AUTO 1 % (0-6); Hematocrit 26.2 % (33.0-51.0); Hemoglobin 8.9 g/dL (11.5-16.0); IMMATURE GRAN ABSOLUTE AUTO 0.08 K/mm3 (0.00-0.10); IMMATURE GRAN PERCENT AUTO 1 % (0-1); LYMPHOCYTES PERCENT AUTO 12 % (21-46); MONOCYTES ABSOLUTE AUTO 1.06 K/mm3 (0.16-1.47); MONOCYTES PERCENT AUTO 6 % (4-13); Mean Corpuscular HGB 30.5 pg (26.0-34.0); Mean Corpuscular Volume 90 fL (80-100); Mean Platelet Volume 9.9 fL (9.1-12.4); NEUTROPHILS ABSOLUTE AUTO 14.01 K/mm3 (1.96-9.15); NEUTROPHILS PERCENT AUTO 81 % (41-73); Platelet Count 234 K/mm3 (150-400); RDW Coefficient Variation 12.7 % (11.7-14.2); Red Blood Cell Count 2.92 M/mm3 (3.80-5.20); White Blood Cell Count 17.36 K/mm3 (4.00-11.30)
[2022-04-16 10:23] LABS: Bun/Creatinine Ratio 18.8 (12.0-20.0); Calcium, Blood 8.6 mg/dL (8.5-10.1); Creatinine, Blood 2.34 mg/dL (0.40-1.00); Potassium, Blood 4.8 mmol/L (3.5-5.5)
--- NOTE | 2022-04-16 16:50 | NUR ---
SHIFT SUMMARY PT RETURNED FROM PACU/S/P L HIP GAMMA NAIL, PRESSURE DRESSING DRY/INTACT. A&OX1, WAKES EASILY, AT BEDSIDE. BIOX ON SATS >92 ON 1LNC, TELE NSR @ 70 BPM. IVF 75 MLS/HR. WILL REPORT TO ONCOMING SUKHDEV RN.
--- NOTE | 2022-04-17 00:36 | NUR ---
PHONE CALL TO DR JACKSON REGARDING PTS VS INCLUDING MAP 50.DISCUSSED CURRENT AND REVIEWED RECENT DOCUMENTED.ADVISED PT INCONT.WILL WEIGH INCONT FOR ACCURATE I/O.DISCUSSED PTS MEDICAL HX.BNP/H&H ORDERED.
[2022-04-17 01:00] LABS: Hematocrit 21.8 % (33.0-51.0); Hemoglobin 7.2 g/dL (11.5-16.0)
--- NOTE | 2022-04-17 02:35 | NUR ---
phone call to dr harley for follow up regarding labs and further vs.message left for return call.
--- NOTE | 2022-04-17 02:44 | NUR ---
RETURN CALL FROM DR JACKSON-REVIEWED CURRENT VS INCLUDING MAPS,AND REPORTED H/H AND BNP RESULTS. ORDERED 1 UNIT PRB.
--- NOTE | 2022-04-17 06:50 | NUR ---
SHIFT SUMMARY PT A&OX 1-2, CALM AND COOPERATIVE WITH CARE. MEDICATED FOR PAIN ONCE THIS SHIFT. TOLERATING WATER AND HAD A FEW BITES OF JELLO, NO N/V. PT HAS BEEN INCONT, BUT HAS ALSO ASKED TO USE THE BEDPAN TO VOID. PT HAD SOFT/INCONSISTENT BP'S IN R/L ARMS. NOTIFIED AND ORDERED 1 UNIT PRB. PRB INFUSING NOW. CALL LIGHT WITHIN REACH.
--- NOTE | 2022-04-17 08:57 | NUR ---
BLOOD THIS RN CAME IN TO FIND PATIENT HAD PULLED IV WITH BLOOD TRANSUFING. RUE WITH LARGE HEMATOMA AT IV SITE WILL AWAIT NEW IV PLACEMENT.
[2022-04-17 13:15] LABS: BASOPHILS ABSOLUTE AUTO 0.03 K/mm3 (0.00-0.23); BASOPHILS PERCENT AUTO 0 % (0-2); EOSINOPHILS PERCENT AUTO 0 % (0-6); Hematocrit 20.5 % (33.0-51.0); Hemoglobin 6.9 g/dL (11.5-16.0); IMMATURE GRAN ABSOLUTE AUTO 0.14 K/mm3 (0.00-0.10); IMMATURE GRAN PERCENT AUTO 1 % (0-1); LYMPHOCYTES ABSOLUTE AUTO 1.65 K/mm3 (0.84-5.20); LYMPHOCYTES PERCENT AUTO 6 % (21-46); MONOCYTES ABSOLUTE AUTO 1.58 K/mm3 (0.16-1.47); MONOCYTES PERCENT AUTO 6 % (4-13); Mean Corpuscular HGB 31.1 pg (26.0-34.0); Mean Corpuscular HGB Conc 33.7 g/dL (31.5-36.5); Mean Corpuscular Volume 92 fL (80-100); Mean Platelet Volume 10.4 fL (9.1-12.4); NEUTROPHILS ABSOLUTE AUTO 22.39 K/mm3 (1.96-9.15); NEUTROPHILS PERCENT AUTO 87 % (41-73); Platelet Count 208 K/mm3 (150-400); RDW Coefficient Variation 13.1 % (11.7-14.2); RDW Standard Deviation 44.4 fL (35.1-46.3); Red Blood Cell Count 2.22 M/mm3 (3.80-5.20); White Blood Cell Count 25.79 K/mm3 (4.00-11.30)
--- NOTE | 2022-04-17 18:39 | NUR ---
SHIFT SUMMARY PATIENT POD1 FOR GAMMA NAIL. AOX1-2. NOT ABLE TO FOLLOW DIRECTIONS. BED ALARM ON FOR SAFETY, IV INFUSING SECOND UNIT OF PBC'S, BP HAS BEEN IN RANGE OF 70'S/30'S TO 90'S/40'S. PATIENT PALE IN COLOR. LUNGS SOUND DIM IN BASES, CLEAR IN UPPER LOBES. TOERATING BLOOD PRODUCTS WELL, AFEBRILE. ABLE TO REPSOTION AND IS CONTINENT AT TIMES. VOIDS SMALL AMOUNTS, POST VOID BLADDER SCAN OF 160. TOLERATES PO INTAKE. TAKES MEDS WHOLE. BLOOD IS STILL INFUSING AND REPEAT LABS AFTER INFUSION TO RECHECK H&H. CALL LIGHT IN REACH.
--- NOTE | 2022-04-17 20:07 | NUR ---
UNABLE TO OBTAIN PT END TRANSFUSION VITALS DUE TO PT RESTLESSNESS. WILL ATTEMPT AGAIN WHEN PT CALMS DOWN.
--- NOTE | 2022-04-17 23:00 | NUR ---
PT HAS BEEN RESTING SINCE PAIN MEDICATION ADMINISTRATION, CONT PULSE-OX AT BEDSIDE. 96% ON RA, AND PULSE 77 @ 2300 WHEN CHECKING ON THE PT.
--- NOTE | 2022-04-18 00:45 | NUR ---
PT STILL RESTLESS, COULD NOT OBTAIN BP.
[2022-04-18 04:13] LABS: BASOPHILS ABSOLUTE AUTO 0.01 K/mm3 (0.00-0.23); BASOPHILS PERCENT AUTO 0 % (0-2); EOSINOPHILS ABSOLUTE AUTO 0.06 K/mm3 (0.00-0.68); EOSINOPHILS PERCENT AUTO 0 % (0-6); Hematocrit 22.9 % (33.0-51.0); Hemoglobin 7.9 g/dL (11.5-16.0); IMMATURE GRAN ABSOLUTE AUTO 0.09 K/mm3 (0.00-0.10); IMMATURE GRAN PERCENT AUTO 0 % (0-1); LYMPHOCYTES ABSOLUTE AUTO 2.32 K/mm3 (0.84-5.20); LYMPHOCYTES PERCENT AUTO 12 % (21-46); MONOCYTES ABSOLUTE AUTO 1.26 K/mm3 (0.16-1.47); MONOCYTES PERCENT AUTO 6 % (4-13); Mean Corpuscular HGB 30.9 pg (26.0-34.0); Mean Corpuscular HGB Conc 34.5 g/dL (31.5-36.5); Mean Corpuscular Volume 90 fL (80-100); Mean Platelet Volume 9.9 fL (9.1-12.4); NEUTROPHILS ABSOLUTE AUTO 16.29 K/mm3 (1.96-9.15); NEUTROPHILS PERCENT AUTO 81 % (41-73); NRBC ABSOLUTE 0.03 K/mm3 (0.00-0.02); NRBC Auto 0.1 /100 WBC (0.0-0.2); Platelet Count 200 K/mm3 (150-400); RDW Coefficient Variation 13.4 % (11.7-14.2); RDW Standard Deviation 43.8 fL (35.1-46.3); Red Blood Cell Count 2.56 M/mm3 (3.80-5.20); White Blood Cell Count 20.03 K/mm3 (4.00-11.30)
--- NOTE | 2022-04-18 06:01 | NUR ---
SHIFT SUMMARY PT ALERT BUT CONFUSED. PT WAS RESTLESS AND NOT FOLLOWING DIRECTION WELL AT BEGINNING OF SHIFT, THIS IMPROVED IN THE AM. PT HAS BEEN INCONTINENT THIS SHIFT, ATTENDS IN PLACE. MEDICATED TWICE FOR PAIN THIS SHIFT. BP OBTAINED A 0420 SHOWED IMPROVEMENT 87/50, AND H&H COME UP TO 7.9. CONTINUED ORDERED FLUIDS. CALL LIGHT WITHIN REACH.
--- NOTE | 2022-04-18 15:24 | NUR ---
SHIFT SUMMARY: POD 2 LEFT HIP NAILING NO SIGNIFICANT CHANGES. PATIENT IS CONFUSED BUT IS AT HER BASELINE ACCORDING TO THE . LEFT HIP HAS FOAM WITH GAUZE DRESSING THAT IS C/D/I. SHE IS TOE TOUCH WT BEARING ON THE LEFT LEG. SHE IS A TWO PERSON MODERATE ASSIST TO THE CHAIR. SHE IS TOLERATING PO INTAKE AND IS VOIDING. IS AT BEDSIDE. CALL LIGHT WITHIN REACH. THE PLAN IS TO CONTINUE PT/OT AND WILL POSSIBLY DISCHARGE TO [facility] TOMORROW IF STILL APPROPRIATE.
--- NOTE | 2022-04-19 04:28 | NUR ---
SUMMARY PT REMAINS CONFUSED. PT ABLE TO FOLLOW SIMPLE DIRECTIONS. PT HAS BEEN PLESANTLY CONFUSED THIS SHIFT. PT HAS HAD NOTED DISCOMFORT AND WAS TX PER EMAR WITH RELIEF. PT HAS BEEN ABLE TO SLEEP THIS SHIFT. NO NEW ISSUES NOTED THIS SHIFT. CALL LIGHT IN REACH AND BED ALARM ON.
[2022-04-19 05:58] LABS: Hematocrit 24.4 % (33.0-51.0); Hemoglobin 8.1 g/dL (11.5-16.0)
[2022-04-19 11:21] LABS: SARS-Cov-2 (COVID-19) PCR, MMC NEGATIVE (NEGATIVE)
--- NOTE | 2022-04-19 16:05 | NUR ---
SHIFT SUMMARY: POD 3 LEFT HIP NAILING NO SIGNIFICANT CHANGES. PATIENT HAS BEEN INTERMITTENTLY SLEEPING THIS AFTERNOON. LEFT HIP HAS FOAM TAPE AND GAUZE THAT ARE C/D/I. DENIES NUMBNESS OR TINGLING AND CAN MOVE FINGERS AND TOES WHEN ASKED. PATIENT IS TOLERATING PO INTAKE AND IS VOIDING. CALL LIGHT WITHIN REACH. THE PLAN IS TO TRANSFER TO [facility] ONCE INSURANCE HAS BEEN ACCEPTED WHICH CAN TAKE UP TO 72 HOURS.
--- NOTE | 2022-04-20 05:21 | NUR ---
SUMMARY NO NEW CHANGES. PT REMAINS PLESANTLY CONFUSED. PT DISCOMFORT HAS BEEN TX PER EMAR WITH RELIEF. PT HAS BEEN SLEEPING OFF AND ON THIS SHIFT. PT CURRENTLY SLEEPING IN NO DISTRESS. CALL LIGHT IN REACH AND BED ALARM ON.
[2022-04-20 05:25] LABS: BASOPHILS ABSOLUTE AUTO 0.03 K/mm3 (0.00-0.23); BASOPHILS PERCENT AUTO 0 % (0-2); EOSINOPHILS ABSOLUTE AUTO 0.48 K/mm3 (0.00-0.68); EOSINOPHILS PERCENT AUTO 3 % (0-6); Hematocrit 24.7 % (33.0-51.0); Hemoglobin 8.1 g/dL (11.5-16.0); IMMATURE GRAN ABSOLUTE AUTO 0.09 K/mm3 (0.00-0.10); IMMATURE GRAN PERCENT AUTO 1 % (0-1); LYMPHOCYTES ABSOLUTE AUTO 2.17 K/mm3 (0.84-5.20); LYMPHOCYTES PERCENT AUTO 12 % (21-46); MONOCYTES ABSOLUTE AUTO 1.19 K/mm3 (0.16-1.47); MONOCYTES PERCENT AUTO 7 % (4-13); Mean Corpuscular HGB 30.7 pg (26.0-34.0); Mean Corpuscular HGB Conc 32.8 g/dL (31.5-36.5); Mean Corpuscular Volume 94 fL (80-100); Mean Platelet Volume 10.4 fL (9.1-12.4); NEUTROPHILS ABSOLUTE AUTO 14.48 K/mm3 (1.96-9.15); NEUTROPHILS PERCENT AUTO 78 % (41-73); Platelet Count 270 K/mm3 (150-400); RDW Coefficient Variation 14.1 % (11.7-14.2); RDW Standard Deviation 47.5 fL (35.1-46.3); Red Blood Cell Count 2.64 M/mm3 (3.80-5.20); White Blood Cell Count 18.44 K/mm3 (4.00-11.30)
--- NOTE | 2022-04-20 17:27 | NUR ---
PT OOB WITH 2 PERSON ASSIST. CALM AND COOPERATIVE THROUGHOUT SHIFT. PT REQUIRES ASSIST AT MEALS AND HAD VERY SMALL AMOUNT OF PO INTAKE WGICH PER HER IS TYPICAL. LEFT HIP DRESSING DRY AND INTACT. PT ORIENTED TO SELF ONLY
--- NOTE | 2022-04-21 06:55 | NUR ---
summary REMAINS PLESANTLY CONFUSED. UP TO BEDSIDE COMMODE TO VOID WITH GB. PT SLEPT WELL THROUGHOUT SHIFT. PAIN MANAGED WELL. PT CALL LIGHT IN REACH AND BED ALARM ON.
[2022-04-21 10:03] LABS: SARS-Cov-2 (COVID-19) PCR, MMC POSITIVE (NEGATIVE)
--- NOTE | 2022-04-21 17:18 | NUR ---
sitting in recliner, dozes at times . pt with occassional attempt to get oob, nonsensical conversation. pt with poor po food intake does take fluids with assistance and encouragement. pt cooperative with care throughout shift. adhesive dressing wrapped with kit clean, dry and intact to left hip. covid precautions in place- pts in to visit and aware of patient testing positive for covid.
--- NOTE | 2022-04-22 03:10 | NUR ---
Patient transferred to floor early evening, resting comfortabley, no complaints of pain or discomfort.
[2022-04-22] MEDS ORDERED: SYNTHROID50 MC1 PO (03:37)
--- NOTE | 2022-04-22 04:22 | NUR ---
Blood pressure retaken by this nurse, 111/44.
--- NOTE | 2022-04-22 18:26 | NUR ---
SHIFT SUMMARY PTN CONFUSED AND UNCOOPERATIVE WITH CARE, TRYING TO CLIMB OUT OF BED. IVANA AND FOUR HANDRAILS PLACED FOR SAFETY AT 1615. WAS PRESENT FOR A BIT, BUT EVEN HE HAD A DIFFICULT TIME WITH RE-DIRECTING PTN. DR IRVING SAW THE PTN AND WAS LATER CONTACTED REGARDING THE BEHAVIOR, ORDERS FOR RESTRAINTS AND MEDICATION CHANGES MADE. LEFT HIP DRESSING REMOVED AND REPLACED WITH AQUACEL, CLOSED HIP INCISION POST SURGERY WITH MEJIA (POSSIBLY 22 OR 23 IN VERTICAL INCISION SITE WITH 2 MEJIA POSTERIOR TO LONG INCISION SITE), HEALING NICELY. SURGERY 04/16 (6 DAYS). PTN CALMER IN LATE AFTERNOON POST IVANA. SPEECH EVAL AND TREAT ORDERED FOR SWALLOW EVAL PRIMARILY. CONTINUE TO MONITOR.
[2022-04-23 19:34] LABS: Source, Urine Clean Catch
[2022-04-23 19:45] LABS: Appearance, Urine Clear (Clear); Bilirubin, Urine Neg (Neg); Blood, Urine Neg (Neg); Color, Urine Yellow (P-Yellow); Glucose Qualitative, Urine 3+ (Neg); Ketones, Urine Neg (Neg); Leukocyte Esterase, Urine Neg (Neg); Nitrite, Urine Neg (Neg); Protein, Urine Neg (Neg); Specific Gravity, Urine 1.015 (1.003-1.022); Urobilinogen, Urine NORM (Normal)
--- NOTE | 2022-04-23 19:46 | NUR ---
PTN SOMNOLENT FOR BREAKFAST AND THROUGH LUNCH, AND 3 PM SEROQUEL HELD. MID AFTRNOON, HOWEVER, PTN MORE LIVELY AND SOMEWHAT AGITATED. SHE DID USE THE BEDPAN BUT WAS CONFUSED AND DIFFICULT TO DIRECT. RESTRAINTS REMAIND ON THROUGH THE SHIF. DRESSING TO LEFT HIP WAS REPLACED WITH AQUACEL DRESSING WITH 75% OF OLD DRESSING WITH MODERATE AMOUNT OF DRAINAGE. NO REDNESS TO THE SITE. 22 MEJIA NOTED IN VERTICAL INCISION WITH 2 MEJIA LATERAL TO INCISION SITE FOR SMALL INCISION, PLACED 04/16. BLOOD SUGARS ELEVATED BOTH FOR LUNCH AND DINNER, COVERED WITH SLIDING SCALE INSULIN. PTN TOOK MEDICATIONS CRUSHED IN APPLESAUCE. CONTINUE TO FOLLOW.
--- NOTE | 2022-04-24 03:14 | NUR ---
Patient resting in bed, no complaints of pain or discomfort.
[2022-04-24 06:08] LABS: Albumin, Blood 2.3 g/dL (3.4-5.0); Anion Gap 8 mmol/L (6-16); Blood Urea Nitrogen 74 mg/dL (8-24); Bun/Creatinine Ratio 41.3 (12.0-20.0); CO2, Blood 19 mmol/L (21-32); Calcium, Blood 8.9 mg/dL (8.5-10.1); Chloride, Blood 113 mmol/L (98-108); Creatinine, Blood 1.79 mg/dL (0.40-1.00); Glomerular Filtration Rate 28 (60-); Glucose, Blood 341 mg/dL (70-99); Phosphorus, Blood 3.2 mg/dL (2.5-4.9); Potassium, Blood 6.5 mmol/L (3.5-5.5); Sodium, Blood 140 mmol/L (136-145)
[2022-04-24 06:41] LABS: Hematocrit 24.5 % (33.0-51.0); Hemoglobin 7.7 g/dL (11.5-16.0); Mean Corpuscular HGB 30.2 pg (26.0-34.0); Mean Corpuscular HGB Conc 31.4 g/dL (31.5-36.5); Mean Corpuscular Volume 96 fL (80-100); Mean Platelet Volume 10.4 fL (9.1-12.4); NRBC ABSOLUTE 0.04 K/mm3 (0.00-0.02); NRBC Auto 0.3 /100 WBC (0.0-0.2); Platelet Count 323 K/mm3 (150-400); RDW Coefficient Variation 14.4 % (11.7-14.2); RDW Standard Deviation 49.5 fL (35.1-46.3); Red Blood Cell Count 2.55 M/mm3 (3.80-5.20); White Blood Cell Count 12.92 K/mm3 (4.00-11.30)
[2022-04-24 10:45] LABS: Bun/Creatinine Ratio 39.2 (12.0-20.0); Calcium, Blood 8.9 mg/dL (8.5-10.1); Creatinine, Blood 1.81 mg/dL (0.40-1.00)
[2022-04-24 10:47] LABS: Potassium, Blood 6.2 mmol/L (3.5-5.5)
--- NOTE | 2022-04-24 19:21 | NUR ---
SHIFT SUMMARY PT REMAINS CONFUSED, REQUIRING RESTRAINTS FOR PT SAFETY. SPEECH THERAPY EVAL DONE. PT MUMBLES, DOES NOT MAKE COHERENT WORDS OR SENTENCES. REPOSITIONED FREQUENTLY. AT END OF SHIFT BLADDER SCAN DONE SHOWING 382 MLS OF URINE RETENTION. L HIP DRESSING CHANGED TODAY, PT TORE OFF ONE THAT WAS ON HER INCISION. INCISION INTACT WITH MEJIA IN PLACE, NO DRAINAGE NOTED. VSS. PT's POTASSIUM THIS MORNING WAS 6.5, CAME DOWN TO 6.2, AFTERNOON BLOOD DRAW SHOWED POTASSIUM IS NOW 5.0.
--- NOTE | 2022-04-24 19:26 | NUR ---
SHIFT SUMMARY ADDENDUM: TELE SHOWS SR WITH HR 70's.
--- NOTE | 2022-04-24 23:49 | NUR ---
CALLED HOSPITALIST REQUESTED TO RENEW RESTRAINTS ORDERS. PT IS CONFUSED AND IMPULSIVE. UPDATED ORDER IN [facility]
--- NOTE | 2022-04-25 04:21 | NUR ---
SHIFT SUMMARY ADMITTED FOR FRACTURED LEFT HIP. FULL CODE. ENHANCED PRECAUTIONS FOR COVID+ MEJIA AND DRESSING IN PLACE ON LEFT HIP. IVANA/RAILS/SOFT WRIST RESTRAINTS IN PLACE. PT IS CONFUSED AND IMPULSIVE. [facility] CBG'S. TELEMETRY: NSR @ 72 BPM. PUREE/ADA DIET. HEPARIN SUBCUT. PLAN IS FOR DC BACK TO [facility] WHERE SHE LIV[facility]. ORTHO CONSULT IS DR. MILLAN
--- NOTE | 2022-04-25 16:18 | NUR ---
BLOOD SUGARS 1450: PT'S BG 54. IS ON D10 AT 75ML/HR. NEW PIV IN L THUMB IS POSITIONAL. PLACED A CALL TO MD TO NOTIFY AND RECEIVED ORDERS TO TRANSFER PT TO PCU.
--- NOTE | 2022-04-25 16:26 | NUR ---
REPORT CALLED TO STUD BEEF [employer]ER 1530:
--- NOTE | 2022-04-25 16:27 | NUR ---
1600: PT TRANSFERRED TO PCU VIA BED.
--- NOTE | 2022-04-25 18:34 | NUR ---
SHIFT SUMMARY REMAINS CONFUSED, UNABLE TO RE-ORIENT BUT IS NO LONGER TUGGING AT HER IV. SHE CONTINUES TO ATTEMPT GETTING OUT OF BED UNASSISTED WITHOUT CALLING. REMOVED THE BILAT WRIST RESTRAINTS AND NO LONGER USING ALL 4 RAILS. MEDICATED HER WITH SEROQUEL ORDERED BY MD. SHE CONTINUES TO REQUIRE THE VEST FOR HER SAFETY TO PREVENT FALLS/INJURIES. AWAITING SNF PLACEMENT.
--- NOTE | 2022-04-25 23:38 | NUR ---
PT STATUS PT HAS PAIN IN HER LEFT HIP. WE DID REPOSITION HER TO HELP HER DISCOMFORT. MEDICATED FOR PAIN AND SLEEPLESSNESS
--- NOTE | 2022-04-26 04:22 | NUR ---
SHIFT SUMMARY ADMITTED FOR LEFT HIP FX. FULL CODE. ENHANCED PRECAUTIONS FOR COVID+. PLAN IS FOR PLACEMENT. IVANA IN PLACE. PT IS CONFUSED AND IMPULSIVE. HX OF FALLS. ACHS CBG'S. TELEMETRY: NSR @ 75 BPM. SHE IS INCONTINENT. PUREE/ADA DIET. RX CRUSHED W/PUDDING. ON RA. ORTHO CONSULT IS DR. MILLAN. SKIN IS FRAGILE AND BRUISED. NO NEW CONCERNS THIS SHIFT
[2022-04-26 05:43] LABS: Albumin, Blood 2.2 g/dL (3.4-5.0); Anion Gap 7 mmol/L (6-16); Blood Urea Nitrogen 76 mg/dL (8-24); Bun/Creatinine Ratio 39.4 (12.0-20.0); CO2, Blood 22 mmol/L (21-32); Calcium, Blood 8.6 mg/dL (8.5-10.1); Chloride, Blood 115 mmol/L (98-108); Creatinine, Blood 1.93 mg/dL (0.40-1.00); Glomerular Filtration Rate 25 (60-); Glucose, Blood 207 mg/dL (70-99); Phosphorus, Blood 3.3 mg/dL (2.5-4.9); Potassium, Blood 5.1 mmol/L (3.5-5.5); Sodium, Blood 144 mmol/L (136-145)
--- NOTE | 2022-04-26 10:54 | NUR ---
RN NOTE MS BIGGS IS CONFUSED, ABLE TO TELL ME HER NAME AND THAT SHE IS IN HOSPITAL. SHE DENIED PAIN, BUT MOANS WHEN HER LEFT LEG IS MOVED. CALM, ABLE TO FOLLOW SIMPLE COMMANDS. RESTRAINT REMOVED AT 0855HRS. PT HAS CALL LIGHT, BUT CONFUSED WITH DEEP BLAS AND I DON'T THINK SHE CAN USE IT. BED ALARM ON AND CLOSE OBSERVATION. PT HAS TELE MONITOR SR SOME PVC'S/PVC'S. DR HANNON REVIEWING TO SEE IF IT CAN BE REMOVED. A LARGE DARK PURPLE BRUISE TO RIGHT AND AND SCATTERED SMALLER BRUISES AND SCABS. DRESSING TO LEFT HIP NOT CHANGED YET THIS SHIFT. TURNED AND REPOSITIONED TO LEFT SIDE AND PT SEEMED COMFORTABLE RESTING. BED LOW, CALL LIGHT IN REACH.
--- NOTE | 2022-04-26 13:54 | NUR ---
RN NOTE TELEMETRY DISCONTINUED PER TO FROM DR HANNON.
--- NOTE | 2022-04-26 18:05 | NUR ---
SHIFT SUMMARY MS BIGGS IS ORIENTATED TO HER NAME ONLY. SHE HAD IVANA RESTRAINT AND SIDE RAILS UP THIS MORNING WHICH WERE REMOVED 0855HRS. BED ALARM ON AND CLOSE MONITORING, SHE HAS DONE WELL; HAS NOT BEEN TRYING TO GET OOB TODAY. LEFT HIP WOUND WITH MEJIA LOOKS WELL APPROXIMATED, SITE HEALING. DRESSING REMOVED SOILED, AREA CLEANSED AND NON ADHESIVE DRESSING APPLIED. HER LEFT HIP AREA IS SWOLLEN. IT SEEMS SORE. PAIN MEDS GIVEN THIS AFTERNOON. SHE IS ABLE TO TURN AND REPOSITION WITH PILLOWS. INCONTINENT OF URINE TODAY, ATTENDS IN PLACE. SHE TOOK MEDS ELKE, CRUSHED IN APPLE SAUCE, EXCEPT UNABLE TO CRUSH THE COLACE AND SHE SPAT IT OUT. DR HANNON NOTIFIED INCASE ALTERNATIVE MEDICATION PREFERED. BP LOW, RECHECKED MANUAL BP WITH BETTER RESULTS. PT DID NOT SEEM TO HAVE SYMPTOMS OF LOW BP, BUT DIFFICULT TO ASSESS. BED LOW, CALL LIGHT IN REACH. BED ALARM ON.
--- NOTE | 2022-04-27 04:14 | NUR ---
SHIFT SUMMARY 81 YR F ADMITTED ON 04/15/22 FOR COVID DIMENTIA W/ BEHAVIORAL ISSUES. FULL CODE. NO ACUTE CHANGES THIS SHIFT. PT IS VERY CONFUSED AND SAYS RANDOM THINGS WHEN YOU TRY TO TALK TO HER. SHE C/O HIP PAIN AND APPEARS TO HAVE TROUBLE GETTING COMFORTABLE. SHE SAID NO TO TAKING HER MEDS CRUSHED W/ APPLESAUCE AND WAS ABLE TO TAKE THEM WHOLE W/ WATER W/O DIFFICULTY. AFTER EVENING MEDS SHE HAS SLEPT FOR MOST OF THIS SHIFT BUT RANDOMLY MOANS IF SHE IS UNCOMFORTABLE.
--- NOTE | 2022-04-27 19:27 | NUR ---
SHIFT SUMMARY: A&O X1, CONFUSED, ANXIOUS AND AT TIMES COOPERATIVE. PT FEARFUL OF FALLING AND DIFFICULTY WITH BED MOBILITY. PT REASSURED AND CALMED BEFORE EACH MOVEMENT. PT ASSISTED WITH MEALS TIMES AND UP IN CHAIR FOR BREAKFAST AND LUNCH. PT IN AND OUT OF SLEEP MOST OF THE SHIFT. PT SURGICAL SITE AND DRESSING CHANGE BY PHYSICIAN. PT RECVIED TRAMADOL FOR MODERATE PAIN IN HER LEFT LEG, ON REASSESSMENT PT RESTING NO S/S OF DISTRESS OR PAIN. PT IN BED WITH CALL LIGHT WITHIN REACH.
--- NOTE | 2022-04-28 04:51 | NUR ---
SHIFT SUMMARY 81 YR F ADMITTED ON 04/15/22 FOR COVID DIMENTIA W/ BEHAVIORAL DISTURBANCES. FULL CODE. NO ACUTE CHANGES THIS SHIFT. PT IS STILL CONFUSED AND HER SPEECH IS GARBLED AND HARD TO UNDERSTAND. HER RESPONSES TO QUESTIONS ARE RANDOM AND MOSTLY DO NOT MAKE SENSE. SHE WAS UP ONCE TO THE [facility] WITH 2 PERSON ASSIST AND SHE DID WELL WITH TRANSFER BUT SHE WAS VERY NERVOUS OF FALLING DOWN. SHE HAS SLEPT FOR MOST OF THIS SHIFT BUT NEEDED REPOSITIONING OFTEN.
[2022-04-28 05:02] LABS: BASOPHILS ABSOLUTE AUTO 0.02 K/mm3 (0.00-0.23); BASOPHILS PERCENT AUTO 0 % (0-2); EOSINOPHILS ABSOLUTE AUTO 0.04 K/mm3 (0.00-0.68); EOSINOPHILS PERCENT AUTO 0 % (0-6); Hemoglobin 7.9 g/dL (11.5-16.0); IMMATURE GRAN ABSOLUTE AUTO 0.09 K/mm3 (0.00-0.10); IMMATURE GRAN PERCENT AUTO 1 % (0-1); LYMPHOCYTES ABSOLUTE AUTO 0.66 K/mm3 (0.84-5.20); LYMPHOCYTES PERCENT AUTO 4 % (21-46); MONOCYTES ABSOLUTE AUTO 0.43 K/mm3 (0.16-1.47); MONOCYTES PERCENT AUTO 3 % (4-13); Mean Corpuscular HGB 30.3 pg (26.0-34.0); Mean Corpuscular HGB Conc 31.6 g/dL (31.5-36.5); Mean Corpuscular Volume 96 fL (80-100); Mean Platelet Volume 10.9 fL (9.1-12.4); NEUTROPHILS ABSOLUTE AUTO 15.94 K/mm3 (1.96-9.15); NEUTROPHILS PERCENT AUTO 93 % (41-73); NRBC ABSOLUTE 0.02 K/mm3 (0.00-0.02); NRBC Auto 0.1 /100 WBC (0.0-0.2); Platelet Count 346 K/mm3 (150-400); RDW Coefficient Variation 14.8 % (11.7-14.2); RDW Standard Deviation 50.6 fL (35.1-46.3); Red Blood Cell Count 2.61 M/mm3 (3.80-5.20); White Blood Cell Count 17.18 K/mm3 (4.00-11.30)
[2022-04-28 05:30] LABS: Bun/Creatinine Ratio 34.2 (12.0-20.0); Calcium, Blood 8.7 mg/dL (8.5-10.1); Creatinine, Blood 2.22 mg/dL (0.40-1.00); Potassium, Blood 5.4 mmol/L (3.5-5.5)
[2022-04-28 11:59] LABS: SARS-Cov-2 (COVID-19) Antigen Positive (NEGATIVE)
--- NOTE | 2022-04-28 16:32 | NUR ---
SHIFT SUMMARY PT ORIENTED TO SELF. PT COOPERATIVE OF CARE MOST OF THE DAY. PT'S SPEACH IS NONSENSICAL AND RESPONSES TO QUESTIONS DO NOT MAKE SENSE. PT ATE VERY LITTLE TODAY. LEFT HIP IS PAINFUL WHEN TURNING OR WITH ATTENDS CHANGE. BED IN LOWEST POSITION AND CALL LIGHT IN REACH.
--- NOTE | 2022-04-29 06:17 | NUR ---
A&Ox1-2. DOES NOT CALL APPROPRIATELY AND DOES NOT COMMUNICATE NEEDS EFFECTIVELY. CALLS OUT FOR HELP BUT WHEN ASKED WHAT SHE NEEDS, SHE DOES NOT ANSWER OR HAS DIFFICULTY ARTICULATING WHAT SHE IS WANTING, THOUGH IS VERBALLY APPRECIATIVE WHEN NEEDS ARE MET. INCONTINENT OF URINE AND CALLED TWICE TO GO TO THE BATHROOM FOR UNSUCCESSFUL BOWEL MOVEMENT. REFUSED EVENING MEDICATIONS, (WHICH CONSISTED OF STOOL SOFTENERS) ASSESSMENT AND IV FLUSH; WAS SLEEPING AT TIME OF MED PASS AND REFUSED MEDICATIONS STATING SHE WOULD KILL RN IF SHE WAS NOT LEFT ALONE. SIGNIFICANT BRUISING OF ENTIRE RIGHT ARM, MEPILEX TO RIGHT ELBOW AND AQUACEL R/T LEFT HIP GAMMA PINNING. WILL REPORT TO ONCOMING RN.
--- NOTE | 2022-04-29 16:03 | NUR ---
PT MOSTLY COOPERATIVE TODAY. LUNGS CLEAR THIS AM. CONTINUES ON R/A. H/R IRREG. (HX AFIB). DID SLAP AND SCRATCH THIS DAY TRYING TO STOP VITAL SIGNS AND BLOOD SUGARS. WAS ABLE TO CALM HER DOWN TO ENABLE TAKING. YELENA DID COME IN TO VISIT THIS NOON TIME. SHE RECOGNIZED HIM, BUT UNABLE TO TELL ME HIS NAME. CAN TELL ME HER NAME ONLY. VSS SHOW HIGH THIS AM, BUT THIS WAS WHEN HER ARMS WERE VERY TENSE. WHEN RELAXED HER B/P MUCH LOWER. HELD B/P MEDS THIS AM. NO NEW CONCERNS NOTED. BED IN LOW POSITION, CALL LITE IN REACH, BED ALARM ON FOR SAFETY
--- NOTE | 2022-04-30 06:26 | NUR ---
EARLY IN SHIFT, PTIENT TRIED REPEATEDLY TO GET OUT OF BED AND WAS UNRESPONSIVE TO REDIRECTION AND EDUCATION REGARDING PATIENT SAFETY. PATIENT IS AOX1 EXCLUSIVELY TO SELF AND IS PARANOID/ANXIOUS, CONSTANTLY VOICING NEED TO LEAVE AND REQUESTING ASSISTANCE TO LEAVE. INITIATED IVANA VEST RESTRAINT TO ENSURE PATIENT SAFETY. EDUCATED ON MERITS OF RESTRAINT AND NEED FOR SAFETY. PATIENT UNABLE TO CONVEY UNDERSTANDING OF EDUCATION. SHIFT OTHERWISE UNREMARKABLE. PATIENT TOOK MEDICATIONS WITHOUT DIFFICULTY CRUSHED IN APPLESAUCE. CALL LIGHT LEFT WITHIN REACH.
--- NOTE | 2022-04-30 18:37 | NUR ---
SHIFT SUMMARY: ORIENTED TO SELF ONLY, RESTLESS AND AGITATED MOST OF THE DAY, CONTINUOUSLY DISROBING. IN IVANA VEST AND 4 SIDE RAILS UP, BEING MONITORED REMOTELY. GOT UP TO CHAIR X 1 WITH 1 PERSON ASSIST, GAIT BELT, AND FWW. L HIP INCISION APPROXIMATED WITH MEJIA, NO S/S OF INFECTION. PT PICKS AT HER SKIN, HAS NUMEROUS SCRATCHES AND SCABS; TRIED COVERING HER HANDS WITH SOCKS WHICH WORKED FOR A SHORT TIME. INCONTINENT OF BLADDER, NO BM TODAY. APPETITE IS VERY POOR, ALSO POOR PO FLUID INTAKE. SEVERE ECCHYMOSIS ON R ARM, R POSTERIOR KNEE, BACK, LLE, AND R LATERAL MALLEOLUS. DENIED PAIN WHEN ASKED.
--- NOTE | 2022-05-01 04:47 | NUR ---
Shift Summary Pt AOx0-1, unable to answer questions or follow basic commands. Pt is in restraints which were renewed tonight: courtney and 4x siderails to for pt safety. Early in the night pt kept trying to remove courtney. Pt was fearful when I tried to feed her thickened liquids with medications, unable to give any medications this shift. Multiple loose, incontinent stools and incontinent voids. Hypertensive this morning, 170/99, BP taken shortly after bed change. Pt now sleeping comfortably. No acute events, pt cooperative with most care.
--- NOTE | 2022-05-01 16:48 | NUR ---
PT AOX0 TODAY AND GET ANXIOUS WITH FINGER POKES OR CHANGE OF POSTION. PT INCONTINENT OF BOWEL AND BLADDER. PT HAS RAILS UP AND BED ALARM IN PLACE WILL CONTNIUE TO MONITOR.
--- NOTE | 2022-05-01 19:15 | NUR ---
PT WAS SHOWING VERY HIGH HR ON MONITOR. MANUAL VITALS WERE TAKEN BP 98/74 HR 80.
--- NOTE | 2022-05-02 06:05 | NUR ---
Rn shift summary: Patient is alert but not oriented. Pt does not talk or seem to understand what you say to her. She will fight most cares. She is refusing any oral care or any fluids. Mouth is very dry, fights even chap stick. Patient rectal area is excoriated, did have incontinent stool. Minimal urine output noted, bladder scan for 133cc. Pt remains in vest courtney for safety, tries to climb out of bed. Non-directable. Difficult to obtain vital signs due to afib, and dehydration. BP difficult to hear manually, via doppler 163/140/D. Pt could benefit from reevaluation from pallative care.
--- NOTE | 2022-05-02 15:00 | NUR ---
SUTURES REMOVED @ THIS TIME PER DR. BAUM ORDERS, STERI STRIPS PLACED. INCISION APPEARS CDI, PINK.
--- NOTE | 2022-05-02 16:52 | NUR ---
SHIFT SUMMARY PT A&OX0, PT LOOKS WHEN TALKED TO-DOES NOT VERBAL RESPOND THIS SHIFT. [facility] CONTACTED THIS SHIFT. PT REFUSING ALL MEDS, PT TOOK ONE BITE OF FOOD THIS SHIFT. HTN NOTED- NOTIFIED, REFUSING MEDS. SPOUSE @ BEDSIDE DURING VISITING HOURS. MEJIA REMOVED THIS SHIFT-STERI STRIPS APPLIED, PT TOLERATED WELL. CALL LIGHT W/IN REACH. LOOSE STOOL NOTED THIS SHIFT, BUTTOCKS RED/EXCORIATED CREAM APPLIED.
--- NOTE | 2022-05-02 21:26 | NUR ---
WELFARE AIDE NOT ABLE TO GET PATIENT VITALS X 4. NOT ABLE TO GET 02 SATURATION WITH POORLY PERFUSED EXTREMITY. RT OBTAINED EAR PROBE AND ABLE TO GET O2 STATS. PATIENT 87% ON ROOM AIR AND PLACED ON 2L O2 NC AND STATING 97%. PATIENT PULLING AT O2 TUBING. REST OF VITALS OBTAINED AND DOCUMENTED. WCTM
--- NOTE | 2022-05-03 04:12 | NUR ---
SHIFT SUMMARY PATIENT AXOX 0 AND BEDREST. NON-VERBAL AND REFUSING SCHEDULE EDUCATION. NO IV ACCESS. CBG 200. STERI STRIPS RIGHT HIP SITE. DENIES PAIN, SOB, AND N/V. BP'S HARD TO OBTAIN. EAR PROBE USED FOR O2 STATS. ABLE TO GET A SET OF VITALS AFTER MULTIPLE ATTEMPTS. RESTRAINTS REMAIN OFF THIS SHIFT. CALL LIGHT IN REACH. BED IN LOWEST POSITION. WILL CONTINUE TO MONITOR UNTIL DAY SHIFT NURSE ASSUMES CARE.
[2022-05-03 06:03] LABS: BASOPHILS ABSOLUTE AUTO 0.08 K/mm3 (0.00-0.23); BASOPHILS PERCENT AUTO 0 % (0-2); EOSINOPHILS ABSOLUTE AUTO 0.01 K/mm3 (0.00-0.68); EOSINOPHILS PERCENT AUTO 0 % (0-6); Hematocrit 29.4 % (33.0-51.0); Hemoglobin 8.9 g/dL (11.5-16.0); IMMATURE GRAN ABSOLUTE AUTO 0.47 K/mm3 (0.00-0.10); IMMATURE GRAN PERCENT AUTO 2 % (0-1); LYMPHOCYTES ABSOLUTE AUTO 0.72 K/mm3 (0.84-5.20); LYMPHOCYTES PERCENT AUTO 2 % (21-46); MONOCYTES ABSOLUTE AUTO 0.79 K/mm3 (0.16-1.47); MONOCYTES PERCENT AUTO 3 % (4-13); Mean Corpuscular HGB 30.3 pg (26.0-34.0); Mean Corpuscular HGB Conc 30.3 g/dL (31.5-36.5); Mean Corpuscular Volume 100 fL (80-100); Mean Platelet Volume 11.8 fL (9.1-12.4); NEUTROPHILS ABSOLUTE AUTO 29.23 K/mm3 (1.96-9.15); NEUTROPHILS PERCENT AUTO 93 % (41-73); NRBC ABSOLUTE 0.42 K/mm3 (0.00-0.02); NRBC Auto 1.3 /100 WBC (0.0-0.2); Platelet Count 485 K/mm3 (150-400); RDW Standard Deviation 55.8 fL (35.1-46.3); Red Blood Cell Count 2.94 M/mm3 (3.80-5.20)
[2022-05-03 07:27] LABS: Albumin, Blood 2.1 g/dL (3.4-5.0); Anion Gap 14 mmol/L (6-16); Blood Urea Nitrogen 151 mg/dL (8-24); Bun/Creatinine Ratio 37.4 (12.0-20.0); CO2, Blood 15 mmol/L (21-32); Calcium, Blood 8.1 mg/dL (8.5-10.1); Chloride, Blood 131 mmol/L (98-108); Creatinine, Blood 4.04 mg/dL (0.40-1.00); Glomerular Filtration Rate 10 (60-); Glucose, Blood 325 mg/dL (70-99); Phosphorus, Blood 7.3 mg/dL (2.5-4.9); Potassium, Blood 7.1 mmol/L (3.5-5.5); Sodium, Blood 160 mmol/L (136-145)
--- NOTE | 2022-05-03 10:00 | NUR ---
DR. HANNON NOTIFIED OF CRIT. LABS
[2022-05-03 10:05] LABS: PCO2 Arterial 26.8 mmHg (35-45); PO2 Arterial 85.8 mmHg (80-100)
[2022-05-03 10:06] LABS: pH Blood Arterial 7.17 (7.35-7.45)
--- NOTE | 2022-05-03 10:32 | NUR ---
RAPID RESPONSE INTITIATED UNABLE TO GET ACURATE BP READING, RAPID CHANGE IN LOC, CHANGE IN BREATHING PATTERN-QUESTION OF CODE STATUS. PT SPOUSE CONFIRMED COMFORT CARE MEASURES ARE TO BE INITIATED.
[2022-05-03 10:45] LABS: Albumin, Blood 1.8 g/dL (3.4-5.0); CO2, Blood 11 mmol/L (21-32); Calcium, Blood 7.9 mg/dL (8.5-10.1); Chloride, Blood 135 mmol/L (98-108); Creatinine, Blood 3.78 mg/dL (0.40-1.00); Glomerular Filtration Rate 11 (60-); Glucose, Blood 248 mg/dL (70-99); Phosphorus, Blood 7.2 mg/dL (2.5-4.9)
--- NOTE | 2022-05-03 10:47 | NUR ---
Spoke with RN Joan and Primary RN Astrid earlier this AM. Discussed case and concerns. Pt appears to be declining and is full code. Family may benefit from discussion regarding code status and goals of care. NIGHT SHIFT is active upon arrival. Discussed case with Dr Álvarez. Left 2 messages with spouse Aaron with request for a return phone call. Aaron arrives and updated provided. Discussed current POLST on file completed in 2019. Aaron confirms Pt's wishes are DNR. Engaged in therapeutic discussion regarding goals of care. Aaron reports Pt would want to focus on comfort at this stage in her life and given her current health conditions. Educated on comfort care philosophy with V/U made by Aaron. Aaron elects comfort care for Pt. Placed comfort care order and comfort care order set per V/O from Dr Álvarez. Dr Álvarez will review medications to D/C. Provided list of resources from [employer] to spouse to assit with rent, clothing, and food. Palliative Care will remain available
[2022-05-03 10:49] LABS: Anion Gap 15 mmol/L (6-16); Blood Urea Nitrogen 152 mg/dL (8-24); Bun/Creatinine Ratio 40.2 (12.0-20.0); Potassium, Blood 6.2 mmol/L (3.5-5.5); Sodium, Blood 161 mmol/L (136-145)
--- NOTE | 2022-05-03 10:59 | NUR ---
"Spiritual Care | Palliative Nurse Request. Pt. is a recent rapid reponse Pt. suffering from severe dementia. Spouse is with Palliative Care and displays evidence of high anxiety. Spouses concerns are about an uncertain personal financial future. Spouse displays evidence of not being able to think clearly. We move Spouse out of the hallway and into Pts. room where a Life Review is facilitated. Listen with empathy and a calming presence. Pastoral staff genetic counselor is given. Prayed for both Pt. and Spouse. Palliative Care arrived with a list of resources provided by the hospital social workers that are available to Spouse. Spouse received the resources, left the room to depart the hospital."
--- NOTE | 2022-05-03 12:12 | NUR ---
TIME OF 12:12 05/03/22, [facility] AND CHARGE NOTIFIED. DR. HANNON NOTIFIED-JONNY IN [facility] ATTEMPTING TO GET AHOLD OF SPOUSE TO NOTIFY AND AQUIRE HOME DETAILS.
--- NOTE | 2022-05-03 15:47 | NUR ---
[facility] IN TO PICK PT UP @ THIS TIME, TRANSPORTER NAMED FRANCIS PARKER.
== END 2022-05-03 12:12 | DRG 480 ==
LOC: ER 20:30 → SURS 04-15 01:43 → MEDS 04-21 21:50
PROVIDERS: Emergency Medicine; Family Medicine; Internal Medicine; Orthopaedic Surgery; ADMIT Internal Medicine
PROC: 0QS734Z Reposition Left Upper Femur with Internal Fixation Device, Percutaneous Approach (ICD-10-PCS; principal; 2022-04-16 10:00)
PROC: 30233N1 Transfusion of Nonautologous Red Blood Cells into Peripheral Vein, Percutaneous Approach (ICD-10-PCS; 2022-04-17)
PROC: 8E0ZXY6 Isolation (ICD-10-PCS; 2022-04-21)
DX: S72.142A Displaced intertrochanteric fracture of left femur, initial encounter for closed fracture (principal); U07.1 COVID-19; E87.1 Hypo-osmolality and hyponatremia; E87.20 Acidosis, unspecified; F03.918 Unspecified dementia, unspecified severity, with other behavioral disturbance; N17.9 Acute kidney failure, unspecified; N18.4 Chronic kidney disease, stage 4 (severe); D62 Acute posthemorrhagic anemia; D61.818 Other pancytopenia; Z51.5 Encounter for palliative care; R62.7 Adult failure to thrive; E86.0 Dehydration; E87.5 Hyperkalemia; I48.0 Paroxysmal atrial fibrillation; E78.00 Pure hypercholesterolemia, unspecified; E11.649 Type 2 diabetes mellitus with hypoglycemia without coma; E11.22 Type 2 diabetes mellitus with diabetic chronic kidney disease; I12.9 Hypertensive chronic kidney disease with stage 1 through stage 4 chronic kidney disease, or unspecified chronic kidney disease; D72.829 Elevated white blood cell count, unspecified; E87.6 Hypokalemia; E66.9 Obesity, unspecified; M19.90 Unspecified osteoarthritis, unspecified site; E83.39 Other disorders of phosphorus metabolism; I25.10 Atherosclerotic heart disease of native coronary artery without angina pectoris; E03.9 Hypothyroidism, unspecified; E11.51 Type 2 diabetes mellitus with diabetic peripheral angiopathy without gangrene; W18.30XA Fall on same level, unspecified, initial encounter; Z79.899 Other long term (current) drug therapy; Z79.02 Long term (current) use of antithrombotics/antiplatelets; Z79.4 Long term (current) use of insulin; Z79.82 Long term (current) use of aspirin; Z79.2 Long term (current) use of antibiotics; Z79.01 Long term (current) use of anticoagulants; Z79.811 Long term (current) use of aromatase inhibitors; Z98.51 Tubal ligation status; Z68.20 Body mass index [BMI] 20.0-20.9, adult; Z98.890 Other specified postprocedural states; Z98.49 Cataract extraction status, unspecified eye; Z89.421 Acquired absence of other right toe(s); Z95.828 Presence of other vascular implants and grafts
CPT/HCPCS: 36415; 36600; 71045; 72170; 73502; 73552; 73700; 76377; 80048; 80053; 80069; 81003; 82803; 82947; 83880; 84132; 84443; 85014; 85018; 85025; 85027; 86850; 86900; 86901; 86923; 87426; 92526; 92610; 93005; 93010; 94760; 94762; 97110; 97162; 97530; 99285-25; A9270; C1713; C9803; J0610; J0690; J1100; J1610; J1644; J1650; J1815; J2250; J2405; J2704; J3010; J7030; J7040; P9016; U0004